=== PATIENT | male | born 1950 | race Caucasian/White ===

== ENCOUNTER 2023-10-09 09:14 | Outpatient (OUT) | payer MEDICARE, SELFPAY ==
[2023-10-09 10:22] LABS: Basophils Absolute Auto 0.1 10^3/uL (0.0-0.1); Basophils Percent Auto 0.7 % (0.2-2.0); Eosinophils Absolute Auto 0.3 10^3/uL (0.0-0.7); Eosinophils Percent Auto 4.1 % (0.9-7.0); Hematocrit 41.4 % (42.0-54.0); Hemoglobin 13.8 g/dL (14.0-18.0); Immature Granulocytes Abs Auto 0.05 10^3/uL (0.00-0.03); Immature Granulocytes Pct Auto 0.7 % (0.0-0.5); Lymphocytes Absolute Auto 1.8 10^3/uL (1.2-3.8); Lymphocytes Percent Auto 24.9 % (20.5-60.0); Mean Corpuscular HGB Conc 33.3 g/dL (29.9-35.2); Mean Corpuscular Volume 96.1 fL (80.0-94.0); Mean Platelet Volume 9.7 fL (9.5-13.5); Monocytes Absolute Auto 0.5 10^3/uL (0.3-0.8); Neutrophils Absolute Auto 4.6 10^3/uL (1.4-6.5); Neutrophils Percent Auto 62.6 % (43.0-75.0); Platelet Count 195 10^3/uL (150-450); Red Blood Count 4.31 10^6/uL (4.70-6.10); White Blood Count 7.4 10^3/uL (4.0-11.0)
[2023-10-09 10:46] LABS: Estimated Average Glucose 114 mg/dL; Glycohemoglobin A1C 5.6 % (4.5-6.2)
[2023-10-09 11:01] LABS: Alanine Aminotransferase 25 U/L (16-63); Albumin Level 3.5 g/dL (3.4-5.0); Alkaline Phosphatase 59 U/L (46-116); Anion Gap 10.9; Aspartate Amino Transferase 20 U/L (15-37); BUN Creatinine Ratio 13.6; Bilirubin Direct 0.1 mg/dL (0.0-0.2); Bilirubin Total 0.6 mg/dL (0.2-1.0); Calcium 9.2 mg/dL (8.5-10.1); Carbon Dioxide 27.8 mmol/L (21.0-32.0); Chloride 105 mmol/L (98-107); Chol HDL Ratio 4.5; Cholesterol 156 mg/dL (<=200); Estimated GFR (African America >60 (>=60); Estimated GFR (Non-African Ame >60 (>=60); Globulin 3.6 g/dL; Glucose 109 mg/dL (74-106); HDL Cholesterol 35 mg/dL (40-60); Potassium 4.7 mmol/L (3.5-5.1); Sodium 139 mmol/L (136-145); Total Protein 7.1 g/dL (6.4-8.2); Triglycerides 109 mg/dL (<=150); VLDL CHOLESTEROL 21.8 mg/dL
[2023-10-09 11:15] LABS: Prostate Specific Antigen Dx 3.42 ng/mL (<=4.00)
== END 2023-10-09 09:15 | disposition home or self-care (01) ==
LOC: LAB 09:17
PROVIDERS: PCP Family Medicine; Visit Provider Family Medicine
DX: E78.5 Hyperlipidemia, unspecified (principal); I10 Essential (primary) hypertension; E55.9 Vitamin D deficiency, unspecified; R73.03 Prediabetes; Z79.899 Other long term (current) drug therapy; Z12.5 Encounter for screening for malignant neoplasm of prostate
CPT/HCPCS: 36415; 80048; 80061; 80076; 82306; 83036; 84153; 85025

== ENCOUNTER 2024-05-28 21:37 | Emergency (ER) | payer MEDICARE, SELFPAY ==
--- OUTSIDE RECORDS SUMMARY | 2024-05-28 21:46 | XMS_ITS | CCD ---
Author Organization [facility] Care Team Providers Care Blind Lacer Name Role Phone DR NEHA WYLIE Attending Unavailable DR NEHA WYLIE Consulting Unavailable DR NEHA WYLIE Primary Care Unavailable DR NEHA WYLIE Admitting Unavailable Neha Wylie MD Primary Care Provider Neha Wylie MD Unavailable NEHA WYLIE Attending Unavailable NEHA WYLIE Attending Unavailable KARLA STACY Attending Unavailable NEHA WYLIE Referring Unavailable NEHA WYLIE Primary Care Unavailable KARLA STACY Attending Unavailable NEHA WYLIE Referring Unavailable NEHA WYLIE Primary Care Unavailable Medications Current Medications Medication Drug Class(es) Dates Sig (Normalized) Sig (Original) [id number] 200 actuat albuterol 0.09 mg/actuat metered dose inhaler (4 sources) beta2-Adrenergic Agonist Start: 03-23-2024 End: 03-23-2024 take 2 puff(s) by inhalation every four hours for wheezing albuterol HFA 90 mcg/act inhaler Indications: Chronic obstructive pulmonary disease, unspecified COPD type ([facility]/HCC) Inhale 2 puffs every 4 (four) hours if needed for wheezing or shortness of breath 18 g 5 03/23/2024 Active ALPRAZolam 1 mg oral tablet (3 sources) Benzodiazepine Start: 09-11-2023 take 1 tablet by mouth in the morning ALPRAZolam (Xanax) 1 MG tablet Take 1 mg by mouth in the morning and 1 mg in the evening. 09/11/2023 Active cholecalciferol 0.05 mg oral tablet (3 sources) Vitamin D Start: 10-21-2023 take 1 tablet by mouth once daily cholecalciferol (Vitamin D-3) 50 MCG (1999) tablet Indications: Vitamin D deficiency, unspecified TAKE 1 TABLET BY MOUTH DAILY 90 tablet 3 10/21/2023 Active lamoTRIgine 150 mg oral tablet (3 sources) Mood Stabilizer, Anti-epileptic Agent take 1 tablet by mouth once daily lamoTRIgine (LaMICtal) 150 MG tablet Take 1 tablet by mouth Daily Active lisinopril 10 mg oral tablet (3 sources) Angiotensin Converting Enzyme Inhibitor Start: 09-23-2023 take 1 tablet by mouth once daily lisinopril 10 MG tablet Indications: Essential (primary) hypertension (CMS/HCC) TAKE 1 TABLET BY MOUTH DAILY 90 tablet 3 09/23/2023 Active 7 actuat umeclidinium 0.0625 mg/actuat dry powder inhaler (3 sources) Anticholinergic Start: 02-07-2024 take 1 puff(s) by mouth once daily Umeclidinium Norco (Incruse Ellipta) 62.5 MCG/ACT aerosol powder Indications: Chronic obstructive pulmonary disease, unspecified (CMS/HCC) INHALE 1 PUFF BY MOUTH DAILY 30 each 5 02/07/2024 Active Problems Active Problems Problem Classification Problem Date Documented Da te Episodic/Chronic Anxiety disorders (4 sources) Generalized anxiety disorder; Translations: [Generalized anxiety disorder] Onset: 12-21-2016 10-07-2023 Chronic Chronic kidney disease (3 sources) Chronic kidney disease stage 3A ; Translations: [Stage 3a chronic kidney disease (HCC)] Onset: 10-07-2023 10-07-2023 Chronic Chronic obstructive pulmonary disease and bronchiectasis (5 sources) Chronic obstructive lung disease; Translations: [Chronic obstructive pulmonary disease, unspecified] Onset: 10-07-2023 10-07-2023 Chronic Disorders of lipid metabolism (3 sources) Dyslipidemia; Translations: [Hyperlipidemia, unspecified] Onset: 10-07-2023 10-07-2023 Chronic Essential hypertension (5 sources) Benign essential hypertension; Translations: [Essential (primary) hypertension] Onset: 10-07-2023 10-07-2023 Chronic Mood disorders (6 sources) Depressed bipolar I disorder in remission; Translations: [Bipolar disorder, in full remission, most recent episode depressed] Onset: 12-21-2016 10-07-2023 Chronic Nutritional deficiencies (3 sources) Vitamin D deficiency; Translations: [Vitamin D deficiency, unspecified] Onset: 10-07-2023 10-07-2023 Chronic Occlusion or stenosis of precerebral arteries (4 sources) Left carotid artery stenosis; Translations: [Occlusion and stenosis of left carotid artery] Onset: 03-23-2024 03-23-2024 Chronic Residual codes; unclassified (3 sources) Obstructive sleep apnea syndrome; Translations: [Obstructive sleep apnea (adult) (pediatric)] Onset: 10-07-2023 10-07-2023 Chronic Past or Other Problems Problem Classification Problem Date Documented Da te Episodic/Chronic Conditions associated with dizziness or vertigo (3 sources) Peripheral vertigo; Translations: [Benign paroxysmal vertigo, bilateral] Onset: 10-07-2023 10-07-2023 Episodic Diabetes mellitus without complication (3 sources) Prediabetes; Translations: [Prediabetes] Onset: 10-07-2023 10-07-2023 Episodic Other aftercare (3 sources) Long-term current use of drug therapy; Translations: [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 Aicha Keller Basophils/100 WBC (Bld) 0.9 % Normal 0.2-2.0 [facility] Comment on above: Performed By: #### C BC #### [facility] [address] [address] [address] Aicha Keller EO # 0.3 103/ul Normal 0.0-0.7 [facility] Comment on above: Performed By: #### C BC #### [facility] [address] [place] [address] Dr. Aicha Keller Eosinophils/100 WBC (Bld) 4.4 % Normal 0.9-7.0 [facility] Comment on above: Performed By: #### C BC #### [facility] [address] [place] [address] Dr. Aicha Keller Erythrocyte distribution width (RBC) [Ratio] 13.0 % Normal 11.0-15.0 [facility] Comment on above: Performed By: #### C BC #### [facility] [address] [place] [address] Dr. Aicha Keller Hematocrit (Bld) [Volume fraction] 41.9 % Critically low 42.0-54.0 [facility] Comment on above: Performed By: #### C BC #### [facility] [address] [place] [address] Dr. Aicha Keller Hemoglobin (Bld) [Mass/Vol] 14.0 g/dL Normal 14.0-18.0 [facility] Comment on above: Performed By: #### C BC #### [facility] [address] [place] [address] Dr. Aicha Keller IG # 0.04 10e3/ul Critically high 0.00-0.03 [facility] Comment on above: Performed By: #### C BC #### [facility] [address] [place] [address] Dr. Aicha Keller IG % 0.6 % Critically high 0.0-0.5 [facility] Comment on above: Performed By: #### C BC #### [facility] [address] [place] [address] Dr. Aicha Keller LYMPH # 1.6 103/ul Normal 1.2-3.8 [facility] Comment on above: Performed By: #### C BC #### [facility] [address] [place] [address] Dr. Aicha Keller Lymphocytes/100 WBC (Bld) 24.1 % Normal 20.5-60.0 [facility] Comment on above: Performed By: #### C BC #### [facility] [address] [place] [address] Dr. Aicha Keller MANUAL DIFF REQ NO Normal [facility] Comment on above: Performed By: #### C BC #### [facility] [address] [place] [address] Dr. Aicha Keller MCH (RBC) [Entitic mass] 31.3 pg Normal 25.9-34.0 [facility] Comment on above: Performed By: #### C BC #### [facility] [address] [place] [address] Dr. Aicha Keller MCHC (RBC) [Mass/Vol] 33.4 g/dL Normal 29.9-35.2 [facility] Comment on above: Performed By: #### C BC #### [facility] [address] [place] [address] Dr. Aicha Keller MCV (RBC) [Entitic vol] 93.7 fL Normal 80.0-94.0 [facility] Comment on above: Performed By: #### C BC #### [facility] [address] [place] [address] Dr. Aicha Keller MONO # 0.4 103/ul Normal 0.3-0.8 [facility] Comment on above: Performed By: #### C BC #### [facility] [address] [place] [address] Dr. Aicha Keller Monocytes/100 WBC (Bld) 6.3 % Normal 1.7-12.0 [facility] Comment on above: Performed By: #### C BC #### [facility] [address] [place] [address] Dr. Aicha Keller NEUT # 4.3 103/ul Normal 1.4-6.5 [facility] Comment on above: Performed By: #### C BC #### [facility] [address] [place] [address] Dr. Aicha Keller Neutrophils/100 WBC (Bld) 63.7 % Normal 43.0-75.0 [facility] Comment on above: Performed By: #### C BC #### [facility] [address] [place] [address] Dr. Aicha Keller Platelet mean volume (Bld) [Entitic vol] 9.2 fL Critically low 9.5-13.5 [facility] Comment on above: Performed By: #### C BC #### [facility] [address] [address] [address] Aicha Keller PLT 193 103/ul Normal 150-450 [facility] Comment on above: Performed By: #### C BC #### [facility] [address] [address] [address] Aicha Keller RBC 4.47 106/ul Critically low 4.70-6.10 [facility] Comment on above: Performed By: #### C BC #### [facility] [address] [address] [address] Aicha Keller WBC 6.8 103/ul Normal 4.0-11.0 [facility] Comment on above: Performed By: #### C BC #### [facility] [address] [place] [address] Dr. Aicha Keller GLYCOHEMOGLOBIN A1Con 2022 ADA RECOMMENDATION SEE BELOW Normal [facility] Comment on above: Result Comment: ADA RECOMMENDED LIMIT 4.0 - 6.0 ADA THERAPEUTIC TARGET < 7.0 ACTION SUGGESTED > 7.0 Performed By: #### A 1C #### [facility] [address] [address] [address] Aicha Keller Glucose [Mass/Vol] 111 mg/dL Normal [facility] Comment on above: Performed By: #### A 1C #### [facility] [address] [place] [address] Dr. Aicha Keller HbA1c (Bld) [Mass fraction] 5.5 % Normal 4.5-6.2 [facility] Comment on above: Performed By: #### A 1C #### [facility] [address] [place] [address] Dr. Aicha Keller LIPID PROFILEon 10-17-2022 CHOL-HDL RATIO NORM SEE BELOW Normal [facility] Comment on above: Result Comment: 3.3 - 4.4 LOW RISK 4.4 - 7.1 AVERAGE RISK 7.1 - 11.0 MODERATE RISK >11.0 HIGH RISK Performed By: #### L IPID, LIVER, BMP #### [facility] [address] [place] [address] Dr. Aicha Keller Cholesterol [Mass/Vol] 153 mg/dL Normal <=200 [facility] Comment on above: Performed By: #### L IPID, LIVER, BMP #### [facility] [address] [address] [address] Aicha Keller Cholesterol in HDL [Mass/Vol] 35 mg/dL Critically low 40-60 [facility] Comment on above: Performed By: #### L IPID, LIVER, BMP #### [facility] [address] [address] [address] Aicha Keller Cholesterol in LDL [Mass/Vol] 93.4 mg/dL Normal [facility] Comment on above: Performed By: #### L IPID, LIVER, BMP #### [facility] [address] [address] [address] Aicha Keller Cholesterol.total/Cho lesterol in HDL [Mass ratio] 4.4 {ratio} Normal [facility] Comment on above: Performed By: #### L IPID, LIVER, BMP #### [facility] [address] [address] [address] Aicha Keller HDL NORMAL > or = 60 mg/dl - LOW CARDIOVASCULAR RISK <40 mg/dl - HIGH CARDIOVASCULAR RISK Normal [facility] Comment on above: Performed By: #### L IPID, LIVER, BMP #### [facility] [address] [address] [address] Aicha Keller LDL CALC NORMAL SEE BELOW Normal [facility] Comment on above: Result Comment: <100 mg/dl OPTIMAL 100 - 129 mg/dl NEAR OR ABOVE OPTIMAL 130 - 159 mg/dl BORDERLINE HIGH 160 - 189 mg/dl HIGH >190 mg/dl VERY HIGH Performed By: #### L IPID, LIVER, BMP #### [facility] [address] [address] [address] Aicha Keller Triglyceride [Mass/Vol] 123 mg/dL Normal <=150 [facility] Comment on above: Performed By: #### L IPID, LIVER, BMP #### [facility] [address] [address] [address] Aicha Keller VLDL CALC 24.6 mg/dL Normal [facility] Comment on above: Performed By: #### L IPID, LIVER, BMP #### [facility] [address] [address] [address] Aicha Keller LIVER PROFILEon 10-17-2022 Albumin [Mass/Vol] 3.4 g/dL Normal 3.4-5.0 [facility] Comment on above: Performed By: #### L IPID, LIVER, BMP #### [facility] [address] [address] [address] Aicha Keller Albumin/Globulin [Mass ratio] 0.8 {ratio} Normal [facility] Comment on above: Performed By: #### L IPID, LIVER, BMP #### [facility] [address] [address] [address] Aicha Keller ALP [Catalytic activity/Vol] 65 U/L Normal 46-116 [facility] Comment on above: Performed By: #### L IPID, LIVER, BMP #### [facility] [address] [address] [address] Aicha Keller ALT [Catalytic activity/Vol] 25 U/L Normal 16-63 [facility] Comment on above: Performed By: #### L IPID, LIVER, BMP #### [facility] [address] [place] [address] Dr. Aicha Keller AST [Catalytic activity/Vol] 17 U/L Normal 15-37 [facility] Comment on above: Performed By: #### L IPID, LIVER, BMP #### [facility] [address] [address] [address] Aicha Keller BILI, CONJUGATED 0.1 mg/dL Normal 0.0-0.2 [facility] Comment on above: Performed By: #### L IPID, LIVER, BMP #### [facility] [address] [place] [address] Dr. Aicha Keller Bilirubin [Mass/Vol] 0.2 mg/dL Normal 0.2-1.0 [facility] Comment on above: Performed By: #### L IPID, LIVER, BMP #### [facility] [address] [address] [address] Aicha Keller Globulin (S) [Mass/Vol] 4.1 g/dL Normal [facility] Comment on above: Performed By: #### L IPID, LIVER, BMP #### [facility] [address] [place] [address] Dr. Aicha Keller Protein [Mass/Vol] 7.5 g/dL Normal 6.4-8.2 [facility] Comment on above: Performed By: #### L IPID, LIVER, BMP #### [facility] [address] [place] [address] Dr. Aicha Keller PROF CHEM 8 (BAS METB)on Anion gap [Moles/Vol] 12.0 mmol/L Normal [facility] Comment on above: Performed By: #### L IPID, LIVER, BMP #### [facility] [address] [place] [address] Dr. Aicha Keller Calcium [Mass/Vol] 8.9 mg/dL Normal 8.5-10.1 [facility] Comment on above: Performed By: #### L IPID, LIVER, BMP #### [facility] [address] [address] [address] Aicha Keller Chloride [Moles/Vol] 103 mmol/L Normal 98-107 [facility] Comment on above: Performed By: #### L IPID, LIVER, BMP #### [facility] [address] [place] [address] Dr. Aicha Keller CO2 [Moles/Vol] 28.5 mmol/L Normal 21.0-32.0 [facility] Comment on above: Performed By: #### L IPID, LIVER, BMP #### [facility] [address] [address] [address] Aicha Keller Creatinine [Mass/Vol] 1.13 mg/dL Normal 0.70-1.30 [facility] Comment on above: Performed By: #### L IPID, LIVER, BMP #### [facility] [address] [address] [address] Aicha Keller EGFR-AF GUAMANIAN >60 Normal >=60 [facility] Comment on above: Performed By: #### L IPID, LIVER, BMP #### [facility] [address] [address] [address] Aicha Keller EGFR-NON AF GUAMANIAN >60 Normal >=60 [facility] Comment on above: Performed By: #### L IPID, LIVER, BMP #### [facility] [address] [address] [address] Aicha Keller Glucose [Mass/Vol] 124 mg/dL Critically high 74-106 [facility] Comment on above: Performed By: #### L IPID, LIVER, BMP #### [facility] [address] [address] [address] Aicha Keller Potassium [Moles/Vol] 4.5 mmol/L Normal 3.5-5.1 [facility] Comment on above: Performed By: #### L IPID, LIVER, BMP #### [facility] [address] [address] [address] Aicha Keller Sodium [Moles/Vol] 139 mmol/L Normal 136-145 [facility] Comment on above: Performed By: #### L IPID, LIVER, BMP #### [facility] [address] [place] [address] Dr. Aicha Keller Urea nitrogen [Mass/Vol] 9.0 mg/dL Normal 7.0-18.0 [facility] Comment on above: Performed By: #### L IPID, LIVER, BMP #### [facility] [address] [address] [address] Aicha Keller Urea nitrogen/Creatinine [Mass ratio] 8.0 mg/mg Normal [facility] Comment on above: Performed By: #### L IPID, LIVER, BMP #### [facility] [address] [place] [address] Dr. Aicha Keller VITAMIN D 25 OHon 10-17-2022 VIT D 25-OH 26.6 ng/mL Normal [facility] Comment on above: Performed By: #### V ITNAA, PSASC #### [facility] [address] [place] [address] Dr. Aicha Keller VIT D RANGES SEE BELOW Normal [facility] Comment on above: Result Comment: <20 ng/mL Vit D deficient 20 - <30 ng/mL Vit D insufficient 30 - 100 ng/mL Vit D sufficient >100 ng/mL Potential Toxicity Performed By: #### V ITAD, PSASC #### [facility] [address] [address] [address] Aicha Keller Vital Signs Date Time Vital Sign Value Performing Clinician Faci lity 03-23-2024 13:24-0500 Body height 172.7 cm Neha Wylie MD Work Phone: [facility] 03-23-2024 13:24-0500 Body mass index (BMI) [Ratio] 31.02 kg/m2 Neha Wylie MD Work Phone: [facility] 03-23-2024 13:24-0500 Body temperature 97.81 [degF] Neha Wylie MD Work Phone: [facility] 03-23-2024 13:24-0500 Body weight 92.53 kg Neha Wylie MD Work Phone: [facility] 03-23-2024 13:24-0500 Diastolic blood pressure 58 mm[Hg] Neha Wylie MD Work Phone: [facility] 03-23-2024 13:24-0500 Heart rate 87 /min Neha Wylie MD Work Phone: [facility] 03-23-2024 13:24-0500 Respiratory rate 20 /min Neha Wylie MD Work Phone: [facility] 03-23-2024 13:24-0500 SaO2% (BldA) [Mass fraction] 96 % Neha Wylie MD Work Phone: [facility] 03-23-2024 13:24-0500 Systolic blood pressure 110 mm[Hg] Neha Wylie MD Work Phone: [facility] Healthcare Encounters Encounter Date Encounter Type Care Provider Facility Start: 03-31-2024 End: 03-31-2024 ambulatory [facility] Start: 03-23-2024 End: 03-23-2024 Bamboo flowsheet Neha Wylie MD Work Phone: [facility] Start: 03-23-2024 End: 03-23-2024 Bamboo flowsheet Neha Wylie MD Work Phone: [facility] Start: 03-23-2024 End: 03-23-2024 Office outpatient visit 25 minutes Neha Wylie MD Work Phone: [facility] Comment on above: Essential hypertensi on, benign (CMS/HCC) (Primary Dx); Chronic obstructive pulmonary disease, unspecified COPD type (CMS/HCC); Depressed bipolar I disorder in remission (CMS/HCC); Left carotid artery stenosis Start: 03-23-2024 End: 03-23-2024 ambulatory NEHA WYLIE Not Available Start: 10-07-2023 End: 10-07-2023 ambulatory NEHA WYLIE Not Available Start: 09-26-2023 End: 09-26-2023 ambulatory [facility] Start: 10-17-[address] NEHA WYLIE Facil ity:H1 Procedures Date Procedure Procedure Detail Performing Clinician Start: 10-17-[address] NEHA LIVE Comment on above: Performed By: #### V ITAD, PSASC #### [facility] [address] [place] [address] Dr. Aicha Keller Start: 09-11-2017 Colonoscopy Neha valencia MD Work Phone: Plan of Treatment Date Care Activity Detail Author Start: 09-12-2027 Screening for malign ant neoplasm of colon [facility] Start: 09-23-2024 End: 09-23-2024 Patient encounter procedure 09/23/2024 1:00 PM EDT Office Visit [facility] [address] [place] [phone] Neha Wylie MD [address] [place] [phone] [facility] Start: 03-23-2024 End: 03-23-2024 Patient encounter procedure 03/23/2024 1:15 PM EST Office Visit [facility] [address] [place] [phone] Neha Wylie MD [address] [place] [phone] Arrived [facility] Comment on above: Arrived Start: 01-19-2024 Influenza vaccination Influenza Vacc ine (#1) [facility] Start: 1956 Pneumococcal Vaccine : 65+ Years (1 of 2 - PCV) Pneumococcal Vaccine: 65+ Years (1 of 2 - PCV) [facility] Start: 1950 Medicare Annual Well ness (AWV) Medicare Annual Wellness (AWV) [facility] Start: 1950 Screening for malign ant neoplasm of colon [facility] Immunizations Immunization Date Immunization Notes Care Provider Fa cility 03-13-2024 influenza virus vacc ine, unspecified formulation Neha Wylie MD Work Phone: [facility] Payers Date Payer Category Payer Medicare (Managed Care) [facility] [id number] 2021 Medicare [id number] 1960 Medicare [id number] 1959 Unknown [id number] 1949 Unknown [id number] 1949 Unknown [id number] 1949 Unknown [id number] 1949 Unknown [id number] 1949 Unknown [id number] Social History Date Type Detail Facility Start: [facility]07[facility] History of tobacco use Cigarette Smoker [facility] Start: 10-07-2023 Tobacco use and exposure Smokeless t obacco non-user [facility] Start: 10-07-2023 End: 03-23-2024 History of Social function [facility] Start: 10-07-2023 End: 03-23-2024 Tobacco use panel [facility] Start: 1950 Sex assigned at Not on file [facility] History of Present illness Narrative 03-23-2024 Neha Wylie MD - 03/23/2024 2:01 PM Cornelio Wylie MD - 03/23/2024 2:00 PM Cornelio Wylie MD - 03/23/2024 2:00 PM Cornelio Wylie MD - 03/23/2024 2:00 PM EST Note Date & Type Note Facility 03-23-2024 History of Presen t illness Narrative Associated Problem(s): Left carotid artery stenosis Found blockage but no symptoms. Check US next visit. Associated Problem(s): Essential hypertension, benign (CMS/HCC) BP controlled and monitor PRN. Associated Problem(s): Depressed bipolar I disorder in remission (CMS/HCC) Symptoms controlled with medication and continue. Follow up with psychiatry. Associated Problem(s): COPD (chronic obstructive pulmonary disease) (CMS/HCC) Breathing stable and continue incruse. Use albuterol PRN. Images from the original note were not included. Subjective Patient ID: Brian Swartz is a 74 y.o. male who presents for Follow-up (6 m). Follow up HTN, COPD, and bipolar. Patient doing well today. Checking BP PRN and typically controlled. BP normal today. Taking medication daily and tolerating without side effects. COPD stable. Taking incruse daily which helps. Mild SOB with exertion. Occasional cough and sputum. Using albuterol once every few weeks and helps. Mood controlled with medication and following with psychiatry. Reports prior imaging showed plaque in left carotid and needs to monitor. Not lightheaded or dizzy. Review of Systems Constitutional: Negative for fatigue. Respiratory: Negative for cough, shortness of breath and wheezing. Cardiovascular: Negative for chest pain and palpitations. Gastrointestinal: Negative for abdominal pain, diarrhea, nausea and vomiting. Genitourinary: Negative for dysuria. Objective Physical Exam Constitutional: General: He is not in acute distress. Appearance: Normal appearance. HENT: Head: Normocephalic. Right Ear: Tympanic membrane and ear canal normal. Left Ear: Tympanic membrane and ear canal normal. Eyes: Extraocular Movements: Extraocular movements intact. Pupils: Pupils are equal, round, and reactive to light. Cardiovascular: Rate and Rhythm: Normal rate and regular rhythm. Heart sounds: No murmur heard. No friction rub. No gallop. Pulmonary: Breath sounds: Normal breath sounds. No wheezing, rhonchi or rales. Abdominal: General: Bowel sounds are normal. There is no distension. Palpations: Abdomen is soft. Tenderness: There is no abdominal tenderness. There is no guarding or rebound. Musculoskeletal: Left lower leg: No edema. Neurological: Mental Status: He is alert. Assessment/Plan Problem List Items Addressed This Visit Essential hypertension, benign (CMS/HCC) - Primary BP controlled and monitor PRN. Depressed bipolar I disorder in remission (CMS/HCC) Symptoms controlled with medication and continue. Follow up with psychiatry. COPD (chronic obstructive pulmonary disease) (CMS/HCC) Breathing stable and continue incruse. Use albuterol PRN. Relevant Medications albuterol HFA 90 mcg/act inhaler Left carotid artery stenosis Found blockage but no symptoms. Check US next visit. documented in this encounter [facility] Evaluation note Note Date & Type Note Facility Evaluation note Diagnosis Essential hypertension, benign (CMS/HCC)- Primary Essential hypertension, benign Chronic obstructive pulmonary disease, unspecified COPD type (CMS/HCC) Depressed bipolar I disorder in remission (CMS/HCC) Bipolar I disorder, most recent episode (or current) depressed, in full remission Dyslipidemia (CMS/HCC) Other and unspecified hyperlipidemia Prediabetes Other abnormal glucose Stage 3a chronic kidney disease (HCC) (CMS/HCC) Vitamin D deficiency Encounter for long-term (current) use of medications Encounter for long-term (current) use of other medications Screening PSA (prostate specific antigen) Special screening for malignant neoplasm of prostate Essential hypertension, benign (CMS/HCC)- Primary Essential hypertension, benign Chronic obstructive pulmonary disease, unspecified COPD type (CMS/HCC) Depressed bipolar I disorder in remission (CMS/HCC) Bipolar I disorder, most recent episode (or current) depressed, in full remission Left carotid artery stenosis documented in this encounter [facility] Summary Purpose Family History No Family History Records FoundNo Family History Records FoundNo Family History Records Found Advance Directives No Advanced Directives Records FoundNo Advanced Directives Records FoundNo Advanced Directives Records Found Additional Source Comments (unrecognized sect ion and content) No Status Records FoundNo Status Records FoundNo Status Records Found INFORMATION SOURCE (unrecogn ized section and content) DATE CREATED AUTHOR 10/26/2022 [facility] DATE CREATED AUTHOR AUTHOR'S ORGANIZ ATION 03/24/2024 [facility] EPIC DATE CREATED AUTHOR AUTHOR'S ORGANIZ ATION 04/02/2024 [facility] Care Teams (unrecognized sec tion and content) Blind Lacer Relationship Specialty Start Date End Date Neha Wylie MD [address] [place] [id number] PCP - General Family Medicine 10/07/23 Neha Wylie MD [address] [place] [phone] [facility] 12/19/23 01/17/69 Blind Lacer Relationship Specialty Start Date End Date Neha Wylie MD [address] [place] [phone] PCP - General Family Medicine 10/07/23 Neha Wylie MD [address] [place] [address] [facility] 12/19/23 01/17/69 Reason for Visit (unrecogniz ed section and content) Reason Comments Follow-up 6 m FOR RECORDS PERTAINING TO PATIENTS WHO ARE OR HAVE BEEN ENROLLED IN A CHEMICAL DEPENDENCY/SUBSTANCEABUSE PROGRAM, SOME INFORMATION MAY BE OMITTED. This clinical summary was aggregated from multiple sources. Caution should be exercised in using it in the provision of clinical care. This summary normalizes information from multiple sources, and as a consequence, information in this document may materially change the coding, format and clinical context of patient data. In addition, data may be omitted in some cases. CLINICAL DECISIONS SHOULD BE BASED ON THE PRIMARY CLINICAL RECORDS. [facility] provides no warranty or guarantee of the accuracy or completeness of information in this document.
== END 2024-05-28 21:45 | disposition left against medical advice (07) ==
LOC: ER 21:44
PROVIDERS: Emergency Provider Emergency Medicine; PCP Family Medicine
DX: Z53.21 Procedure and treatment not carried out due to patient leaving prior to being seen by health care provider (principal)

== ENCOUNTER 2024-10-15 14:02 | Outpatient (OUT) | payer MEDICARE, SELFPAY ==
--- OUTSIDE RECORDS SUMMARY | 2024-10-15 14:26 | XMS_ITS | CCD ---
Author Organization [facility] Team Providers Care Discharge Door Operator Name Role Phone DR LOBO WYLIE Attending Unavailable INESSA, DR LOBO West Consulting Unavailable INESSA, DR LOBO West Primary Care Unavailable INESSA, DR LOBO West Admitting Unavailable Lobo Wylie MD Primary Care Provider Lobo Wylie MD Unavailable Lobo Wylie MD Primary Care Provider [phone] LOBO WYLIE Attending Unavailable LOBO WYLIE Attending Unavailable LOBO WYLIE Attending Unavailable KARLA STACY Attending Unavailable LOBO WYLIE Referring Unavailable LOBO WYLIE Primary Care Unavailable KARLA STACY Attending Unavailable LOBO WYLIE Referring Unavailable LOBO WYLIE Primary Care Unavailable Medications Current Medications Medication Drug Class(es) Dates Sig (Normalized) Sig (Original) [id number] 200 actuat albuterol 0.09 mg/actuat metered dose inhaler (8 sources) beta2-Adrenergic Agonist Start: 03-23-2024 End: 03-23-2024 take 2 puff(s) by inhalation every four hours for wheezing albuterol HFA 90 mcg/act inhaler Indications: Chronic obstructive pulmonary disease, unspecified COPD type ([facility]) Inhale 2 puffs every 4 (four) hours if needed for wheezing or shortness of breath 18 g 5 03/23/2024 Active Start: 07-12-2020 take 2 puff(s) by in halation every four hours as needed albuterol (PROVENTIL HFA;VENTOLIN HFA) 90 mcg/actuation inhaler Inhale 2 puffs every 4 (four) hours as needed. 07/12/2020 Active ALPRAZolam 1 mg oral tablet (8 sources) Benzodiazepine Start: 09-11-2023 End: 12-09-2023 take 1 tablet by mouth in the morning ALPRAZolam (Xanax) 1 MG tablet Take 1 mg by mouth in the morning and 1 mg in the evening. 09/11/2023 Active cholecalciferol 0.05 mg oral tablet (7 sources) Vitamin D Start: 09-21-2023 take 1 tablet by mouth once daily cholecalciferol (Vitamin D-3) 50 MCG (2000 UT) tablet Indications: Vitamin D deficiency, unspecified TAKE 1 TABLET BY MOUTH DAILY 90 tablet 3 10/21/2023 Active lamoTRIgine 150 mg oral tablet (7 sources) Mood Stabilizer, Anti-epileptic Agent Start: 02-12-2023 take 1 tablet by mouth once daily lamoTRIgine (LaMICtal) 150 mg tablet Indications: Major depressive disorder, recurrent episode, moderate (CMS-HCC) Take 1 tablet (150 mg total) by mouth once daily. 90 tablet 3 02/12/2023 Active lisinopril 10 mg oral tablet (7 sources) Angiotensin Converting Enzyme Inhibitor Start: 09-15-2024 take 1 tablet by mouth once daily lisinopril 10 MG tablet Indications: Essential (primary) hypertension (CMS/HCC) TAKE 1 TABLET BY MOUTH DAILY 90 tablet 3 09/15/2024 Active Start: 02-27-2022 take 1 tablet by martha th once daily lisinopril 10 MG tablet Indications: Essential (primary) hypertension (CMS/HCC) TAKE 1 TABLET BY MOUTH DAILY 90 tablet 3 09/23/2023 Active Nirmatrelvir&Ritonavir 300/1 00 (Paxlovid, 300/100,) 20 x 150 MG & 10 x 100MG tablet therapy pack (3 sources) Start: 05-29-2024 End: 09-23-2024 Nirmatrelvir&Ritonavir 300/1 00 (Paxlovid, 300/100,) 20 x 150 MG & 10 x 100MG tablet therapy pack Indications: COVID-19 Take 1 each by mouth See administration instructions 1 each 05/29/2024 09/23/2024 Discontinued Start: 05-29-2024 Nirmatrelvir&R itonavir 300/100 (Paxlovid, 300/100,) 20 x 150 MG & 10 x 100MG tablet therapy pack Indications: COVID-19 Take 1 each by mouth See administration instructions 1 each 05/29/2024 Active 7 actuat umeclidinium 0.0625 mg/actuat dry powder inhaler (7 sources) Anticholinergic Start: 08-18-2024 take 1 puff(s) by mouth once daily Umeclidinium [place] (Incruse Ellipta) 62.5 MCG/ACT aerosol powder Indications: Chronic obstructive pulmonary disease, unspecified INHALE 1 PUFF BY MOUTH DAILY 30 each 5 08/18/2024 Active Start: 02-07-2024 take 1 puff(s) by mo uth once daily Umeclidinium [place] (Incruse Ellipta) 62.5 MCG/ACT aerosol powder Indications: Chronic obstructive pulmonary disease, unspecified (CMS/HCC) INHALE 1 PUFF BY MOUTH DAILY 30 each 5 02/07/2024 Active Start: 06-12-2020 take 1 puff(s) by in halation once daily INCRUSE ELLIPTA 62.5 mcg/actuation blister with device INHALE 1 PUFF DAILY 06/12/2020 Active Problems Active Problems Problem Classification Problem Date Documented Da te Episodic/Chronic Anxiety disorders (9 sources) Generalized anxiety disorder; Translations: [Generalized anxiety disorder] Onset: 12-21-2016 10-07-2023 Chronic Chronic kidney disease (8 sources) Chronic kidney disease stage 3A ; Translations: [Stage 3a chronic kidney disease (HCC)] Onset: 10-07-2023 10-07-2023 Chronic Chronic obstructive pulmonary disease and bronchiectasis (11 sources) Chronic obstructive lung disease; Translations: [Chronic obstructive pulmonary disease, unspecified] Onset: 09-20-2020 10-07-2023 Chronic Diabetes mellitus without complication (8 sources) Prediabetes; Translations: [Prediabetes] Onset: 10-07-2023 10-07-2023 Episodic Disorders of lipid metabolism (8 sources) Dyslipidemia; Translations: [Hyperlipidemia, unspecified] Onset: 10-07-2023 10-07-2023 Chronic Essential hypertension (10 sources) Benign essential hypertension; Translations: [Essential (primary) hypertension] Onset: 10-07-2023 10-07-2023 Chronic Mood disorders (12 sources) Depressed bipolar I disorder in remission; Translations: [Bipolar disorder, in full remission, most recent episode depressed] Onset: 12-21-2016 10-07-2023 Chronic Nutritional deficiencies (6 sources) Vitamin D deficiency; Translations: [Vitamin D deficiency, unspecified] Onset: 10-07-2023 10-07-2023 Chronic Occlusion or stenosis of precerebral arteries (7 sources) Left carotid artery stenosis; Translations: [Occlusion and stenosis of left carotid artery] Onset: 03-23-2024 03-23-2024 Chronic Other aftercare (8 sources) Long-term current use of drug therapy; Translations: [Other usp (current) drug therapy] Onset: 10-07-2023 10-07-2023 Episodic Other nutritional; endocrine; and metabolic disorders (4 sources) Obesity caused by energy imbalance; Translations: [Class 1 obesity due to excess calories with serious comorbidity and body mass index (BMI) of 30.0 to 30.9 in adult] Onset: 09-23-2024 09-23-2024 Chronic Other screening for suspected conditions (not mental disorders or infectious disease) (8 sources) Patient encounter status; Translations: [Encounter for screening for malignant neoplasm of prostate] Onset: 10-07-2023 10-07-2023 Episodic Residual codes; unclassified (6 sources) Obstructive sleep apnea syndrome; Translations: [Obstructive sleep apnea (adult) (pediatric)] Onset: 10-07-2023 10-07-2023 Chronic Past or Other Problems Problem Classification Problem Date Documented Da te Episodic/Chronic Conditions associated with dizziness or vertigo (6 sources) Peripheral vertigo; Translations: [Benign paroxysmal vertigo, bilateral] Onset: 10-07-2023 10-07-2023 Episodic Mood disorders (2 sources) Mood disorders Onset: 09-23-2024 09-23-2024 Results Test Name Value Interpretation Reference Range Facil ity CBC AUTO DIFFon 10-17-2022 BASO # 0.1 103/ul Normal 0.0-0.1 [facility] Comment on above: Performed By: #### C BC #### [facility] [address] [address] [address] Aicha Keller Basophils/100 WBC (Bld) 0.9 % Normal 0.2-2.0 [facility] Comment on above: Performed By: #### C BC #### [facility] [address] [address] [address] Aicha Keller EO # 0.3 103/ul Normal 0.0-0.7 [facility] Comment on above: Performed By: #### C BC #### [facility] [address] [place] [address] Dr. Aicha Keller Eosinophils/100 WBC (Bld) 4.4 % Normal 0.9-7.0 [facility] Comment on above: Performed By: #### C BC #### [facility] [address] [place] [address] Dr. Aihca Keller Erythrocyte distribution width (RBC) [Ratio] 13.0 % Normal 11.0-15.0 [facility] Comment on above: Performed By: #### C BC #### [facility] [address] [place] [address] Dr. Aicha Keller Hematocrit (Bld) [Volume fraction] 41.9 % Critically low 42.0-54.0 [facility] Comment on above: Performed By: #### C BC #### [facility] [address] [place] [address] Dr. Aicha Keller Hemoglobin (Bld) [Mass/Vol] 14.0 g/dL Normal 14.0-18.0 [facility] Comment on above: Performed By: #### C BC #### [facility] [address] [place] [address] Dr. Aicha Keller IG # 0.04 10e3/ul Critically high 0.00-0.03 [facility] Comment on above: Performed By: #### C BC #### [facility] [address] [place] [address] Dr. Aicha Keller IG % 0.6 % Critically high 0.0-0.5 [facility] Comment on above: Performed By: #### C BC #### [facility] [address] [place] [address] Dr. Aicha Keller LYMPH # 1.6 103/ul Normal 1.2-3.8 [facility] Comment on above: Performed By: #### C BC #### [facility] [address] [place] [address] Dr. Aicha Keller Lymphocytes/100 WBC (Bld) 24.1 % Normal 20.5-60.0 [facility] Comment on above: Performed By: #### C BC #### [facility] [address] [place] [address] Dr. Aicha Keller MANUAL DIFF REQ NO Normal [facility] Comment on above: Performed By: #### C BC #### [facility] [address] [place] [address] Dr. Aicha Keller MCH (RBC) [Entitic mass] 31.3 pg Normal 25.9-34.0 [facility] Comment on above: Performed By: #### C BC #### [facility] [address] [place] [address] Dr. Aicha Keller MCHC (RBC) [Mass/Vol] 33.4 g/dL Normal 29.9-35.2 [facility] Comment on above: Performed By: #### C BC #### [facility] [address] [place] [address] Dr. Aicha Keller MCV (RBC) [Entitic vol] 93.7 fL Normal 80.0-94.0 [facility] Comment on above: Performed By: #### C BC #### [facility] [address] [place] [address] Dr. Aicha Keller MONO # 0.4 103/ul Normal 0.3-0.8 [facility] Comment on above: Performed By: #### C BC #### [facility] [address] [place] [address] Dr. Aicha Keller Monocytes/100 WBC (Bld) 6.3 % Normal 1.7-12.0 [facility] Comment on above: Performed By: #### C BC #### [facility] [address] [place] [address] Dr. Aicha Keller NEUT # 4.3 103/ul Normal 1.4-6.5 [facility] Comment on above: Performed By: #### C BC #### [facility] [address] [place] [address] Dr. Aicha Keller Neutrophils/100 WBC (Bld) 63.7 % Normal 43.0-75.0 [facility] Comment on above: Performed By: #### C BC #### [facility] [address] [place] [address] Dr. Aicha Keller Platelet mean volume (Bld) [Entitic vol] 9.2 fL Critically low 9.5-13.5 [facility] Comment on above: Performed By: #### C BC #### [facility] [address] [address] [address] Aicha Keller PLT 193 103/ul Normal 150-450 [facility] Comment on above: Performed By: #### C BC #### [facility] [address] [place] [address] Dr. Aicha Keller RBC 4.47 106/ul Critically low 4.70-6.10 [facility] Comment on above: Performed By: #### C BC #### [facility] [address] [place] [address] Dr. Aicha Keller WBC 6.8 103/ul Normal 4.0-11.0 [facility] Comment on above: Performed By: #### C BC #### [facility] [address] [place] [address] Dr. Aicha Keller GLYCOHEMOGLOBIN A1Con 2022 ADA RECOMMENDATION SEE BELOW Normal [facility] Comment on above: Result Comment: ADA RECOMMENDED LIMIT 4.0 - 6.0 ADA THERAPEUTIC TARGET < 7.0 ACTION SUGGESTED > 7.0 Performed By: #### A 1C #### [facility] [address] [place] [address] Dr. Aicha Keller Glucose [Mass/Vol] 111 mg/dL Normal [facility] Comment on above: Performed By: #### A 1C #### [facility] [address] [place] [address] Dr. Aicha Keller HbA1c (Bld) [Mass fraction] 5.5 % Normal 4.5-6.2 [facility] Comment on above: Performed By: #### A 1C #### [facility] [address] [place] [address] Dr. Aicha Keller LIPID PROFILEon 10-17-2022 CHOL-HDL RATIO NORM SEE BELOW Normal [facility] Comment on above: Result Comment: 3.3 - 4.4 LOW RISK 4.4 - 7.1 AVERAGE RISK 7.1 - 11.0 MODERATE RISK >11.0 HIGH RISK Performed By: #### L IPID, LIVER, BMP #### [facility] [address] [address] [address] Aicha Keller Cholesterol [Mass/Vol] 153 mg/dL Normal <=200 [facility] Comment on above: Performed By: #### L IPID, LIVER, BMP #### [facility] [address] [address] [address] Aicha Keller Cholesterol in HDL [Mass/Vol] 35 mg/dL Critically low 40-60 [facility] Comment on above: Performed By: #### L IPID, LIVER, BMP #### [facility] [address] [address] [address] Aicha Keller Cholesterol in LDL [Mass/Vol] 93.4 mg/dL Normal [facility] Comment on above: Performed By: #### L IPID, LIVER, BMP #### [facility] [address] [address] [address] Aicha Keller Cholesterol.total/Cho lesterol in HDL [Mass ratio] 4.4 {ratio} Normal [facility] Comment on above: Performed By: #### L IPID, LIVER, BMP #### [facility] [address] [address] [address] Aicha Keller HDL NORMAL > or = 60 mg/dl - LOW CARDIOVASCULAR RISK <40 mg/dl - HIGH CARDIOVASCULAR RISK Normal [facility] Comment on above: Performed By: #### L IPID, LIVER, BMP #### [facility] [address] [address] [address] Aicha Keller LDL CALC NORMAL SEE BELOW Normal [facility] Comment on above: Result Comment: <100 mg/dl OPTIMAL 100 - 129 mg/dl NEAR OR ABOVE OPTIMAL 130 - 159 mg/dl BORDERLINE HIGH 160 - 189 mg/dl HIGH >190 mg/dl VERY HIGH Performed By: #### L IPID, LIVER, BMP #### [facility] [address] [address] [address] Aicha Keller Triglyceride [Mass/Vol] 123 mg/dL Normal <=150 [facility] Comment on above: Performed By: #### L IPID, LIVER, BMP #### [facility] [address] [address] [address] Aicha Keller VLDL CALC 24.6 mg/dL Normal [facility] Comment on above: Performed By: #### L IPID, LIVER, BMP #### [facility] [address] [address] [address] Aicha Keller LIVER PROFILEon 10-17-2022 Albumin [Mass/Vol] 3.4 g/dL Normal 3.4-5.[address] [facility] Comment on above: Performed By: #### L IPID, LIVER, BMP #### [facility] [address] [place] [address] Dr. Aicha Keller Albumin/Globulin [Mass ratio] 0.8 {ratio} Normal [facility] Comment on above: Performed By: #### L IPID, LIVER, BMP #### [facility] [address] [address] [address] Aicha Keller ALP [Catalytic activity/Vol] 65 U/L Normal 46-116 [facility] Comment on above: Performed By: #### L IPID, LIVER, BMP #### [facility] [address] [address] [address] Aicha Keller ALT [Catalytic activity/Vol] 25 U/L Normal 16-63 [facility] Comment on above: Performed By: #### L IPID, LIVER, BMP #### [facility] [address] [address] [address] Aicha Keller AST [Catalytic activity/Vol] 17 U/L Normal 15-37 [facility] Comment on above: Performed By: #### L IPID, LIVER, BMP #### [facility] [address] [address] [address] Aicha Keller BILI, CONJUGATED 0.1 mg/dL Normal 0.0-0.2 [facility] Comment on above: Performed By: #### L IPID, LIVER, BMP #### [facility] [address] [place] [address] Dr. Aicha Keller Bilirubin [Mass/Vol] 0.2 mg/dL Normal 0.2-1.0 [facility] Comment on above: Performed By: #### L IPID, LIVER, BMP #### [facility] [address] [place] [address] Dr. Aicha Keller Globulin (S) [Mass/Vol] 4.1 g/dL Normal [facility] Comment on above: Performed By: #### L IPID, LIVER, BMP #### [facility] [address] [place] [address] Dr. Aicha Keller Protein [Mass/Vol] 7.5 g/dL Normal 6.4-8.2 [facility] Comment on above: Performed By: #### L IPID, LIVER, BMP #### [facility] [address] [place] [address] Dr. Aicha Keller PROF CHEM 8 (BAS METB)on Anion gap [Moles/Vol] 12.0 mmol/L Normal [facility] Comment on above: Performed By: #### L IPID, LIVER, BMP #### [facility] [address] [place] [address] Dr. Aicha Keller Calcium [Mass/Vol] 8.9 mg/dL Normal 8.5-10.1 [facility] Comment on above: Performed By: #### L IPID, LIVER, BMP #### [facility] [address] [place] [address] Dr. Aicha Keller Chloride [Moles/Vol] 103 mmol/L Normal 98-107 [facility] Comment on above: Performed By: #### L IPID, LIVER, BMP #### [facility] [address] [place] [address] Dr. Aicha Keller CO2 [Moles/Vol] 28.5 mmol/L Normal 21.0-32.0 [facility] Comment on above: Performed By: #### L IPID, LIVER, BMP #### [facility] [address] [address] [address] Aicha Keller Creatinine [Mass/Vol] 1.13 mg/dL Normal 0.70-1.30 [facility] Comment on above: Performed By: #### L IPID, LIVER, BMP #### [facility] [address] [address] [address] Aicha Keller EGFR-AF SOMALI >60 Normal >=60 [facility] Comment on above: Performed By: #### L IPID, LIVER, BMP #### [facility] [address] [address] [address] Aicha Keller EGFR-NON AF SOMALI >60 Normal >=60 [facility] Comment on above: Performed By: #### L IPID, LIVER, BMP #### [facility] [address] [address] [address] Aicha Keller Glucose [Mass/Vol] 124 mg/dL Critically high 74-106 [facility] Comment on above: Performed By: #### L IPID, LIVER, BMP #### [facility] [address] [address] [address] Aicha Keller Potassium [Moles/Vol] 4.5 mmol/L Normal 3.5-5.1 [facility] Comment on above: Performed By: #### L IPID, LIVER, BMP #### [facility] [address] [address] [address] Aicha Keller Sodium [Moles/Vol] 139 mmol/L Normal 136-[address] [facility] Comment on above: Performed By: #### L IPID, LIVER, BMP #### [facility] [address] [address] [address] Aicha Keller Urea nitrogen [Mass/Vol] 9.0 mg/dL Normal 7.0-18.0 [facility] Comment on above: Performed By: #### L IPID, LIVER, BMP #### [facility] [address] [address] [address] Aicha Keller Urea nitrogen/Creatinine [Mass ratio] 8.0 mg/mg Normal [facility] Comment on above: Performed By: #### L IPID, LIVER, BMP #### [facility] [address] [address] [address] Aicha Keller VITAMIN D 25 OHon 10-17-2022 VIT D 25-OH 26.6 ng/mL Normal [facility] Comment on above: Performed By: #### V ITAD, PSASC #### [facility] [id number] Aicha Keller VIT D RANGES SEE BELOW Normal [facility] Comment on above: Result Comment: <20 ng/mL Vit D deficient 20 - <30 ng/mL Vit D insufficient 30 - 100 ng/mL Vit D sufficient >100 ng/mL Potential Toxicity Performed By: #### V ITAD, PSASC #### [facility] [address] [address] [address] Aicha Keller Vital Signs Date Time Vital Sign Value Performing Clinician Faci lity 09-23-2024 13:13040 Body height 172.7 cm Lobo Wylie MD Work Phone: [facility] 09-23-2024 13:13-0400 Body mass index (BMI) [Ratio] 29.65 kg/m2 Lobo Wylie MD Work Phone: [facility] 09-23-2024 13:13-0400 Body temperature 97.5 [degF] Lobo Wylie MD Work Phone: [facility] 09-23-2024 13:13-040 Body weight 88.45 kg Lobo Wylie MD Work Phone: [facility] 09-23-2024 13:13-0400 Diastolic blood pressure 70 mm[Hg] Lobo Wylie MD Work Phone: [facility] 09-23-2024 13:13-0400 Heart rate 71 /min Lobo Wylie MD Work Phone: [facility] 09-23-2024 13:13-0400 Respiratory rate 18 /min Lobo Wylie MD Work Phone: [facility] 09-23-2024 13:13-0400 SaO2% (BldA) [Mass fraction] 98 % Lobo Wylie MD Work Phone: [facility] 09-23-2024 13:13-0400 Systolic blood pressure 122 mm[Hg] Lobo Wylie MD Work Phone: [facility] 03-23-2024 13:24-0500 Body height 172.7 cm Lobo Wylie MD Work Phone: [facility] 03-23-2024 13:24-0500 Body mass index (BMI) [Ratio] 31.02 kg/m2 Lobo Wylie MD Work Phone: [facility] 03-23-2024 13:24-0500 Body temperature 97.81 [degF] Lobo Wylie MD Work Phone: [facility] 03-23-2024 13:24-0500 Body weight 92.53 kg Lobo Wylie MD Work Phone: [facility] 03-23-2024 13:24-0500 Diastolic blood pressure 58 mm[Hg] Lobo Wylie MD Work Phone: [facility] 03-23-2024 13:24-0500 Heart rate 87 /min Lobo Wylie MD Work Phone: [facility] 03-23-2024 13:24-0500 Respiratory rate 20 /min Lobo Wylie MD Work Phone: [facility] 03-23-2024 13:24-0500 SaO2% (BldA) [Mass fraction] 96 % Lobo Wylie MD Work Phone: [facility] 03-23-2024 13:24-0500 Systolic blood pressure 110 mm[Hg] Lobo Wylie MD Work Phone: [facility] Encounters Encounter Date Encounter Type Care Provider Facility Start: 09-29-2024 End: 09-29-2024 ambulatory KARLA [facility] Start: 09-23-2024 End: 09-23-2024 Bamboo flowsheet Lobo Wylie MD Work Phone: [facility] Start: 09-23-2024 End: 09-23-2024 Bamboo flowsheet Lobo Wylie MD Work Phone: [facility] Start: 09-23-2024 End: 09-23-2024 Patient encounter procedure Lobo Wylie MD Work Phone: [facility] Work Phone: Start: 09-23-2024 End: 09-23-2024 Postop follow up visit related to original px Lobo Wylie MD Work Phone: [facility] Comment on above: Medicare annual well ness visit, subsequent (Primary Dx); Chronic obstructive pulmonary disease, unspecified COPD type (CMS/HCC); Depressed bipolar I disorder in remission (CMS/HCC); Dyslipidemia (CMS/HCC); Encounter for long-term (current) use of medications; Essential hypertension, benign (CMS/HCC); Stage 3a chronic kidney disease (HCC) (CMS/HCC); Screening PSA (prostate specific antigen); Prediabetes; Class 1 obesity due to excess calories with serious comorbidity and body mass index (BMI) of 30.0 to 30.9 in adult Start: 09-23-2024 End: 09-23-2024 ambulatory LOBO WYLIE Not Available Start: 03-31-2024 End: 03-31-2024 ambulatory KARLA [facility] Start: 03-23-2024 End: 03-23-2024 Bamboo flowsheet Lobo Wylie MD Work Phone: [facility] Start: 03-23-2024 End: 03-23-2024 Bamboo flowsheet Lobo Wylie MD Work Phone: [facility] Start: 03-23-2024 End: 03-23-2024 Office outpatient visit 25 minutes Lobo Wylie MD Work Phone: [facility] Comment on above: Essential hypertensi on, benign (CMS/HCC) (Primary Dx); Chronic obstructive pulmonary disease, unspecified COPD type (CMS/HCC); Depressed bipolar I disorder in remission ([facility] [facility] Left carotid artery stenosis Start: 03-23-2024 End: 03-23-2024 ambulatory LOBO WYLIE Not Available Start: 12-09-2023 End: 12-09-2023 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 Aicha Keller Start: 09-11-2017 Colonoscopy Lobo valencia MD Work Phone: Plan of Treatment Date Care Activity Detail Author Start: 09-12-2027 Screening for malign ant neoplasm of colon [facility] Start: 03-29-2025 End: 03-29-2025 Patient encounter procedure 03/29/2025 1:00 PM EST Office Visit [facility] [address] [place] [address] Lobo Wylie MD [address] [place] [phone] [facility] Start: 09-23-2024 End: 09-23-2025 Basic metabolic 1998 panel - Serum or Plasma Basic metabolic panel Lab Routine Stage 3a chronic kidney disease (HCC) ([facility]/HCC) Expected: 09/23/2024 (Approximate), Expires: 09/23/2025 [facility] Comment on above: Expected: 09/23/2024 (Approximate), Expires: 09/23/2025 Start: 09-23-2024 End: 09-23-2025 CBC W Auto Differential panel - Blood CBC and differential Lab Routine Encounter for long-term (current) use of medications Expected: 09/23/2024 (Approximate), Expires: 09/23/2025 [facility] Comment on above: Expected: 09/23/2024 (Approximate), Expires: 09/23/2025 Start: 09-23-2024 End: 09-23-2025 Hemoglobin A1c/Hemoglobin.total in Blood Hemoglobin A1c Lab Routine Prediabetes Expected: 09/23/2024 (Approximate), Expires: 09/23/2025 [facility] Work Phone: Comment on above: Expected: 09/23/2024 (Approximate), Expires: 09/23/2025 Start: 09-23-2024 End: 09-23-2025 Hepatic function 2000 panel - Serum or Plasma Hepatic function panel Lab Routine Encounter for long-term (current) use of medications Expected: 09/23/2024 (Approximate), Expires: 09/23/2025 [facility] Comment on above: Expected: 09/23/2024 (Approximate), Expires: 09/23/2025 Start: 09-23-2024 End: 09-23-2025 Lipid 1996 panel - Serum or Plasma Lipid panel Lab Routine Dyslipidemia (CMS/HCC) Expected: 09/23/2024 (Approximate), Expires: 09/23/2025 [facility] Comment on above: Expected: 09/23/2024 (Approximate), Expires: 09/23/2025 Start: 09-23-2024 End: 09-23-2025 Prostate specific Ag [Mass/volume] in Serum or Plasma PSA Lab Routine Screening PSA (prostate specific antigen) Expected: 09/23/2024 (Approximate), Expires: 09/23/[address]25 [facility] Comment on above: Expected: 09/23/2024 (Approximate), Expires: 09/23/2025 Start: 09-23-2024 End: 09-23-2025 Thyrotropin [Units/volume] in Serum or Plasma TSH Lab Routine Class 1 obesity due to excess calories with serious comorbidity and body mass index (BMI) of 30.0 to 30.9 in adult Expected: 09/23/2024 (Approximate), Expires: 09/23/[address]25 [facility] Comment on above: Expected: 09/23/2024 (Approximate), Expires: 09/23/2025 Start: 09-23-2024 End: 09-23-2024 Patient encounter procedure [facility] Comment on above: Arrived Start: 03-23-2024 End: 03-23-2024 Patient encounter procedure 03/23/2024 1:15 PM EST Office Visit [facility] [address] [place] [address] Lobo Wylie MD [address] [place] [address] Arrived [facility] Comment on above: Arrived Start: 01-19-2024 Influenza vaccination [facility] Start: 07-08-2023 COVID-19 Vaccine ( season) COVID-19 Vaccine ( season) [facility] Start: 2014 Fall Risk Screening Fall Risk Screen ing [facility] Start: 1999 Administration of varicella zoster vaccine Zoster (Shingles) Vaccine (1 of 2) [facility] Start: 01-12-1968 DTaP,Tdap and Td Vac cines (1 - Tdap) DTaP,Tdap and Td Vaccines (1 - Tdap) [facility] Start: 01-12-1968 Pneumococcal Vaccine : 65+ Years (1 of 2 - PCV) Pneumococcal Vaccine: 65+ Years (1 of 2 - PCV) [facility] Start: 1967 Adult BMI Screening Adult BMI Screen ing [facility] Start: 1961 Depression Screening Depression Scre ening [facility] Start: 1961 Tobacco Screening Tobacco Screening [facility] Start: 1955 Pneumococcal Vaccine : 65+ Years (1 of 2 - PCV) Pneumococcal Vaccine: 65+ Years (1 of 2 - PCV) [facility] Start: 1949 Medicare Annual Well ness (AWV) Medicare Annual Wellness (AWV) [facility] Start: 1949 Medicare Annual Well ness Visit Medicare Annual Wellness Visit [facility] Start: 1949 Screening for malign ant neoplasm of colon [facility] Immunizations Immunization Date Immunization Notes Care Provider Fa cility 03-13-2024 influenza virus vaccine, unspecified formulation Lobo Wylie MD Work Phone: [facility] 03-07-2023 influenza virus vaccine, unspecified formulation Eboni Carroll [facility] Payers Date Payer Category Payer Medicare (Managed Care) [id number] 2023 Medicare [employer] MEDICARE UHC MEDICARE ADVANTAGE PPO [id number] 2023-Present [phone] [address] [address] [place] [address] [id number] 2021 Medicare [id number] 1959 Medicare [id number] 1959 Unknown [id number] 1949 Unknown [id number] 1949 Unknown [id number] 1949 Unknown [id number] 1949 Unknown [id number] 1949 Unknown [id number] 1949 Unknown [id number] Social History Date Type Detail Facility Start: 10-07-2023 [facility] History of tobacco use Cigarette Smoker [facility] Start: 10-07-2023 Tobacco use and exposure Smokeless tobacco non-user [facility] Start: 10-07-2023 End: 09-23-2024 History of Social function [facility] Start: 10-07-2023 End: 09-23-2024 Tobacco use panel [facility] Start: 1950 Sex assigned at Not on file P [facility] Tobacco smoking consumption unknown [facility] Childcare Unknown [facility] Functional Status Date Assessment Result Facility 09-23-2024 Patient Health [facility] ionnaire 2 item (PHQ-2) [Reported] [facility] History of Present illness Narrative 09-23-2024 Lobo Wylie MD - 09/23/2024 1:35 PM EDAggie Wylie MD - 09/23/2024 1:35 PM Jena Wylie MD - 09/23/2024 1:34 PM Jena Wylie MD - 09/23/2024 1:00 PM EDT Note Date & Type Note Facility 09-23-2024 History of Presen t illness Narrative Associated Problem(s): Medicare annual wellness visit, subsequent Due for labs. Discussed proper diet and regular aerobic exercise. Need aerobic exercise 5-6 days a week for 30 minutes at a time. Smaller portions and limit total calories. Colonoscopy every 10 years. Tetanus every 10 years. Advised not to smoke. Associated Problem(s): Depressed bipolar I disorder in remission (CMS/[facility]) Symptoms controlled with medication and continue. Follow up with psychiatry. Associated Problem(s): COPD (chronic obstructive pulmonary disease) (CMS/HCC) Breathing stable and continue incruse. Use albuterol PRN. Images from the original note were not included. Subjective Patient ID: Debra Amin is a 74 y.o. male who presents for Medicare Annual Wellness Visit Subsequent (wellness). Presents for medicare annual wellness visit. Feels well today and no concerns. Weight down 9 pounds in the past year. Tries to stay active around house but no regular exercise. Tries to watch diet and eat healthy. Increased fruits and vegetables. Smaller portions and limits snacking. Tries to limit total daily calories. Due for labs. Mood controlled with medication. COPD stable and hasn't needed albuterol in several months. Review of Systems Constitutional: Negative for fatigue. [...] There is no guarding or rebound. Musculoskeletal: General: Normal range of motion. Left lower leg: No edema. Neurological: General: No focal deficit present. Mental Status: He is alert. Cranial Nerves: No cranial nerve deficit. Deep Tendon Reflexes: Reflexes normal. Assessment/Plan Problem List Items Addressed This Visit Essential hypertension, benign (CMS/HCC) Depressed bipolar I disorder in remission (CMS/HCC) Symptoms controlled with medication and continue. Follow up with psychiatry. COPD (chronic obstructive pulmonary disease) (CMS/HCC) Breathing stable and continue incruse. Use albuterol PRN. Dyslipidemia (CMS/HCC) Relevant Orders Lipid panel Prediabetes Relevant Orders Hemoglobin A1c Stage 3a chronic kidney disease (HCC) (CMS/HCC) Relevant Orders Basic metabolic panel Encounter for long-term (current) use of medications Relevant Orders CBC and differential Hepatic function panel Screening PSA (prostate specific antigen) Relevant Orders PSA Medicare annual wellness visit, subsequent - Primary Due for labs. Discussed proper diet and regular aerobic exercise. Need aerobic exercise 5-6 days a week for 30 minutes at a time. Smaller portions and limit total calories. Colonoscopy every 10 years. Tetanus every 10 years. Advised not to smoke. Class 1 obesity due to excess calories with serious comorbidity and body mass index (BMI) of 30.0 to 30.9 in adult Relevant Orders TSH documented in this encounter [facility] History of Present illness Narrative 03-23-2024 Lobo Wylie MD - 03/23/2024 2:01 PM Cornelio [...] note were not included. Subjective Patient ID: Debra Amin is a 74 y.o. male who presents [...] visit. documented in this encounter [facility] Note 12-09-2023 Psychiatric Progress Note - Eboni Carroll CMA - 12/09/2023 1:52 PM EDT Note Date & Type Note Facility 12-09-2023 Miscellaneous Notes Formattin g of this note might be different from the original. Refill Request recieved via patient phone call patient states he only has 3 tablets left Medication name, dosage & directions: XANAX 10 MG TAKE 1 TABLET (1 MG TOTAL) BY MOUTH IN THE MORNING AND 11 TABLET (1 MB TOTAL) BEFORE BEDTIME Pharmacy: [facility] Any side effects?: No Currently or ?: No Last appointment: 09/26/2023 Per Note RTC: 6 months Next appointment scheduled: 03/31/2024 Last fill date: 09/11/2023 If Controlled: Oarrs completed? yes documented in this encounter [facility] Progress note 12-09-2023 Psychiatric Progress Note - Eboni Carroll CMA - 12/09/2023 1:52 PM EDT Note Date & Type Note Facility 12-09-2023 Progress note Formatting of t his note might be different from the original. Refill Request recieved via patient phone call patient states he only has 3 tablets left Medication name, dosage & directions: XANAX 10 MG TAKE 1 TABLET (1 MG TOTAL) BY MOUTH IN THE MORNING AND 11 TABLET (1 MB TOTAL) BEFORE BEDTIME Pharmacy: [facility] [place] Any side effects?: No Currently or ?: No Last appointment: 09/26/2023 Per Note RTC: 6 months Next appointment scheduled: 03/31/2024 Last fill date: 09/11/2023 If Controlled: Oarrs completed? yes [facility] Evaluation note Note Date & Type Note [...] carotid artery stenosis documented in this encounter [facility] Evaluation note Note Date & Type Note Facility Evaluation note Diagnosis Panic disorder Panic disorder without agoraphobia documented in this encounter [facility] Evaluation note Note Date & Type Note Facility Evaluation note Diagnosis Essential hypertension, benign (CMS/HCC)- Primary Essential hypertension, benign Chronic obstructive pulmonary disease, unspecified COPD type (CMS/HCC) Depressed bipolar I disorder in remission (CMS/HCC) Bipolar I disorder, most recent episode (or current) depressed, in full remission Dyslipidemia (CMS/HCC) Other and unspecified hyperlipidemia Prediabetes Other abnormal glucose Stage 3a chronic kidney disease (HCC) ([facility]/HCC) Vitamin D deficiency Encounter for long-term (current) [...] in full remission Left carotid artery stenosis Medicare annual wellness visit, subsequent- Primary Chronic obstructive pulmonary disease, unspecified COPD type (CMS/HCC) Depressed bipolar I disorder in remission ([facility]/HCC) Bipolar I disorder, most recent episode (or current) depressed, in full remission Dyslipidemia ([facility]/HCC) Other and unspecified hyperlipidemia Encounter for long-term (current) use of medications Encounter for long-term (current) use of other medications Essential hypertension, benign (CMS/HCC) Essential hypertension, benign Stage 3a chronic kidney disease (HCC) ([facility]/HCC) Screening PSA (prostate specific antigen) Special screening for malignant neoplasm of prostate Prediabetes Other abnormal glucose Class 1 obesity due to excess calories with serious comorbidity and body mass index (BMI) of 30.0 to 30.9 in adult documented in this encounter [facility] Instructions Note Date & Type Note Facility Instructions Not on filedocumented in this en counter [facility] Summary Purpose Family History No Family History Records FoundNo Family History Records FoundNo Family History Records Found Advance Directives No Advanced Directives Records FoundNo Advanced Directives Records FoundNo Advanced Directives Records Found Additional Source Comments (unrecognized sect ion and content) No Status Records FoundNo Status Records FoundNo Status Records Found INFORMATION SOURCE (unrecogn ized section and content) DATE CREATED AUTHOR 10/26/2022 [facility] DATE CREATED AUTHOR AUTHOR'S ORGANIZ ATION 09/26/2024 [facility] EPIC DATE CREATED AUTHOR AUTHOR'S ORGANIZ ATION 09/30/2024 [facility] Care Teams (unrecognized sec tion and content) Discharge Door Operator Relationship Specialty Start Date End Date Lobo Wylie MD [address] [place] [phone] PCP - General Family Medicine 10/07/23 Lobo Wylie MD [address] [place] [phone] PCP - [facility] 12/19/23 01/17/69 Discharge Door Operator Relationship Specialty Start Date End Date Lobo Wylie MD [address] [place] [phone] PCP - General Family Medicine 10/07/23 Lobo Wylie MD [address] [place] [address] PCP - [facility] 12/19/23 01/17/69 Discharge Door Operator Relationship Specialty Start Date End Date Lobo Wylie MD [address] [facility] [place] [address] PCP - General Family Medicine 06/26/18 Discharge Door Operator Relationship Specialty Start Date End Date Lobo Wylie MD [address] [place] [phone] PCP - General Family Medicine 10/07/23 Lobo Wylie MD [address] [place] [phone] [facility] 12/19/23 01/17/69 Discharge Door Operator Relationship Specialty Start Date End Date Lobo Wylie MD [address] [place] [address] PCP - General Family Medicine 10/07/23 Lobo Wylie MD [address] [place] [address] [facility] 12/19/23 01/17/69 Reason for Visit (unrecogniz ed section and content) Reason Comments Follow-up 6 m Reason Onset Date Comments Med Refill 12/09/2023 Reason Comments Medicare Annual Wellness Visit Subsequen t wellness FOR RECORDS PERTAINING TO PATIENTS WHO ARE [...] BE BASED ON THE PRIMARY CLINICAL RECORDS. [facility]. provides no warranty or guarantee of the accuracy or completeness of information in this document.
[2024-10-15 14:32] LABS: Basophils Absolute Auto 0.1 10^3/uL (0.0-0.1); Basophils Percent Auto 0.7 % (0.2-2.0); Eosinophils Absolute Auto 0.2 10^3/uL (0.0-0.7); Eosinophils Percent Auto 1.9 % (0.9-7.0); Hematocrit 45.6 % (42.0-54.0); Hemoglobin 15.9 g/dL (14.0-18.0); Immature Granulocytes Abs Auto 0.03 10^3/uL (0.00-0.03); Immature Granulocytes Pct Auto 0.4 % (0.0-0.5); Lymphocytes Absolute Auto 2.1 10^3/uL (1.2-3.8); Lymphocytes Percent Auto 24.9 % (20.5-60.0); Mean Corpuscular HGB Conc 34.9 g/dL (29.9-35.2); Mean Corpuscular Hemoglobin 33.4 pg (25.9-34.0); Mean Corpuscular Volume 95.8 fL (80.0-94.0); Mean Platelet Volume 9.3 fL (9.5-13.5); Monocytes Absolute Auto 0.4 10^3/uL (0.3-0.8); Neutrophils Absolute Auto 5.7 10^3/uL (1.4-6.5); Neutrophils Percent Auto 67.1 % (43.0-75.0); Platelet Count 200 10^3/uL (150-450); Red Blood Count 4.76 10^6/uL (4.70-6.10); Red Cell Distribution Width 12.6 % (11.0-15.0); White Blood Count 8.4 10^3/uL (4.0-11.0)
[2024-10-15 15:04] LABS: Alanine Aminotransferase 25 U/L (16-63); Albumin Level 3.8 g/dL (3.4-5.0); Alkaline Phosphatase 67 U/L (46-116); Anion Gap 13.1; Aspartate Amino Transferase 17 U/L (15-37); Bilirubin Direct 0.1 mg/dL (0.0-0.2); Bilirubin Total 0.5 mg/dL (0.2-1.0); Calcium 9.4 mg/dL (8.5-10.1); Carbon Dioxide 29.6 mmol/L (21.0-32.0); Chloride 104 mmol/L (98-107); Chol HDL Ratio 3.7; Cholesterol 158 mg/dL (<=200); Estimated Average Glucose 111 mg/dL; Estimated GFR (African America >60 (>=60 mL/min/1.73m^2); Estimated GFR (Non-African Ame >60 (>=60 mL/min/1.73m^2); Globulin 3.8 g/dL; Glucose 116 mg/dL (74-106); Glycohemoglobin A1C 5.5 % (4.5-6.2); HDL Cholesterol 43 mg/dL (40-60); LDL Cholesterol Calculated 96.2 mg/dL; Potassium 4.7 mmol/L (3.5-5.1); Sodium 142 mmol/L (136-145); Thyroid Stimulating Hormone 1.013 uIU/mL (0.358-3.740); Total Protein 7.6 g/dL (6.4-8.2); Triglycerides 94 mg/dL (<=150); VLDL CHOLESTEROL 18.8 mg/dL
[2024-10-15 15:51] LABS: Prostate Specific Antigen Scrn 4.28 ng/mL (<=4.00)
== END 2024-10-15 14:03 | disposition home or self-care (01) ==
LOC: LAB 14:07
PROVIDERS: PCP Family Medicine; Visit Provider Family Medicine
DX: E78.5 Hyperlipidemia, unspecified (principal); R73.03 Prediabetes; N18.31 Chronic kidney disease, stage 3a; Z79.899 Other long term (current) drug therapy; Z12.5 Encounter for screening for malignant neoplasm of prostate; E66.811 Obesity, class 1; E66.09 Other obesity due to excess calories; Z68.30 Body mass index [BMI] 30.0-30.9, adult
CPT/HCPCS: 36415; 80048; 80061; 80076; 83036; 84443; 85025; G0103

== ENCOUNTER 2025-04-07 13:53 | Outpatient (OUT) | payer MEDICARE, SELFPAY ==
--- OUTSIDE RECORDS SUMMARY | 2025-03-29 08:39 | XMS_ITS | Continuity of Care Document ---
Author Organization [facility] Address [address] [place] [address] Phone Care Team Providers Care Metal Engraver Name Role Phone Lobo Michele MD Primary Care Provider [phone] Lobo Michele MD Attending Provider Care Teams Patient Care Team Team Status: Active Member Role/Relationship Status Dates oLbo Michele MD Primary Care Provider Active Patient Care Team Team Status: Inactive Member Role/Relationship Status Dates Lobo Michele MD Primary Care Provider Active S tart: March 29, 2025 End: March 29, 2025Marc LUKE Michelettending ProviderActiveStart: March 29, 2025 End: March 29, 2025 Chief Complaint and Reason for Visit Chief Complaint Admit Date Established Patient March 29, 2025 1:06pm Reason for Visit Admit Date BPH associated with nocturia March 292024 1:06pm COPD (chronic obstructive pulmonary dise ase) March 29, 2025 1:06pm Depressed bipolar I disorder in on license of [facility] n March 29, 2025 1:06pm Essential hypertension, benign March 29, 2025 1:06pm Generalized anxiety disorder March 292024 1:06pm Left carotid artery stenosis March 292024 1:06pm Allergies, Adverse Reactions, Alerts Allergen Type Severity Reaction Last Updated Verified Status No Known Allergies Allergy Unknown March 29, 2025 1:14pmYesActive Social History Smoking Status Status Start Date End Date Date of Observa tion Smokes tobacco daily (finding) March 29, 2025 1:15pm Observation Status Observation Response Date of Response Legal Sex [facility] (finding) [facility] 1949 Problems Active Problems Problem Diagnosis/Recorded Date Onset Date Stat us Medicare annual wellness vis it, subsequent March 29, 2025 1:24pm Unknown Active Depressed bipolar I disorder in remission March 25, 2025 1:16pm Unknown Active Obstructive sleep apnea March 25, 2025 1:16pm Unkn own Active Generalized anxiety disorder March 25, 2025 1:16pm Unknown Active Benign paroxysmal vertigo of both ears March 25 1:15pm Unknown Active Essential hypertension, benign March 25, 2025 1:16 pm Unknown Active Dyslipidemia March 25, 2025 1:16pm Unknown Ac tive Encounter for long-term (cur rent) use of medications March 29, 2025 1:24pm Unknown Active Prediabetes March 25, 2025 1:17pm Unknown Ac tive COPD (chronic obstructive pu lmonary disease) March 25, 2025 1:15pm Unknown Active Stage 3a chronic kidney disease March 25, 2025 1:1 7pm Unknown Active Left carotid artery stenosis March 25, 2025 1:16pm Unknown Active BPH associated with nocturia March 29, 2025 1:33p m Unknown Active Vitamin D deficiency March 25, 2025 1:17pm Unknown Active Medications Medication Status Dose Units Route Directions Qty Days Refills S tart Date Stop Date End Date Reason(s) Instructions Adherence Umeclidinium (Incruse Ellipt a) 62.5 mcg/actuation blister with device Active 1 INH INHALATION Daily 30 [facility] 20[facility] 11:00pmComplies with drug therapyLamotrigine 150 mg tablet Fsrqtz390XKHEKsmfiUmhwfpar 6th, 2025 12:00amComplies with drug therapyAlprazolam 1 mg vilxsnFzjeak7VVQWHtdcg dailyQuorum Health2024 12:00amComplies with drug therapyLisinopril 10 mg crjorfAvxgcb79PAOJVuntxWnhzuvub 6th, 2025 12:00am Complies with drug therapyAlbuterol Sulfate 90 mcg/actuation HFA aerosol inhaler Gntalh8NSPNFVRFJZVVGMNlgsr 4 hours as neededQuorum Health2024 12:00amComplies with drug therapyCholecalciferol (Vitamin D3) 50 mcg (2,000 unit) dhvvqvFwdxak61 MCGPODailyQuorum Health2024 12:00amComplies with drug therapy Vital Signs Vital Reading Result Reference Range Collection Date/Time Height 69 [in_i] March 29, 2025 1:28wsAvkurv75.99 kgMarch 29, 2025 1:13pmBody Abtgomlvyfn37.5 [degF]97.6-99.0March 29, 2025 1:13pmHeart Rate73 /ysf20-540 March 29, 2025 1:13pmRespiratory rate18 /ggu75-38AbtjbzbgMarch 29, 2025 1:13pm Oxygen saturation by Pulse plxwlxse10 %95-100March 29, 2025 1:13pmBP Yykhzyeb212 mm[Hg]100-140March 29, 2025 1:13pmBP Ljosdjxcm58 mm[Hg]60-100 March 29, 2025 1:13pmBMI (Body Mass Index)28.6 kg/u0XoyjmwtxMarch 29, 2025 1:13pm Advance Directives Advance Directive Response Recorded Date/ Time Advance Directives No March 1:03pm Insurance Providers Guarantor Brian Amin Address [address] [place] [phone] Info.Home Phone: C Coverage Status Update:2025 Payer Group Member ID Coverage Type Subscriber Relationship to Subscriber Effective Date Expiration Date [employer] [address] [address] [facility] [address] Work Phone: [phone] H Henson Id: [id number] [address] [place] [phone] Home Phone: CSelfUnited Healthcare [facility] PFFS [id number] H Amin Id: [id number] [address] [place] [phone] Home Phone: CSelf Encounters Encounter Location(s) Arrival/Admit Date Discharge/Departure Date Discharge/Departure Disposition Provider(s) Departed Physician/ Provider Office Visit -[facility] Family Medicine Andreas March 29, 2025 1:06pm March 29, 2025 1:38pm Discharged to home care or self care (routine discharge) Lobo Michele MD Recent Diagnosis Onset Date Admit Date BPH associated with nocturia Unknown Mar 1:06pm COPD (chronic obstructive pulmonary disease) Unk nown March 29, 2025 1:06pm Depressed bipolar I disorder in remission Unknow n March 29, 2025 1:06pm Essential hypertension, benign Unknown N ov2024 1:06pm Generalized anxiety disorder Unknown Mar 1:06pm Left carotid artery stenosis Unknown Mar 1:06pm Assessments Diagnosis Onset Date Resolution Status Admit Date BPH associated with nocturia acuteMarch 29, 2025 1:06pmCOPD (chronic obstructive pulmonary disease)acute March 29, 2025 1:06pmDepressed bipolar I disorder in remissionacuteMarch 29, 2025 1:06pmEssential hypertension, benignacuteMarch 29, 2025 1:06pm Generalized anxiety disorderacuteMarch 29, 2025 1:06pmLeft carotid artery stenosisacuteMarch 29, 2025 1:06pm Plan of Treatment Future Tests Future scheduled test information is unavailable Pending Tests Test Name Ordered Date Scheduled Date US carotid doppler BI March 29, 2025 1:34pm Future Visits Future appointment information is unavailable Future Procedures Future procedure information is unavailable Future Medications Future medication information is unavailable Patient Instructions Patient instructions are unavailable
--- OUTSIDE RECORDS SUMMARY | 2025-04-07 13:57 | XMS_ITS | Clinical Summary ---
Author Organization [facility] tem Address [id number] [address] [place] [address] Care Team Providers Care It Project Lead Name Role Phone Lobo Michele MD Primary Care Provider [phone] Allergies No known active allergies Medications * This document contains information received from the source organization and may not represent a complete record from that organization. MedicationSigDispense QuantityRefillsLast FilledStart DateEnd DateStatus INCRUSE ELLIPTA 62.5 mcg/actuation blister with device 06/12/2020ctive albuterol (PROVENTIL HFA;VENTOLIN HFA) 90 mcg/actuation inhaler Inhale 2 puffs every 4 (four) hours as needed.07/12/2020ctive lisinopriL (PRINIVIL,ZESTRIL) 10 mg tablet Take 1 tablet (10 mg total) by mouth in the morning.02/27/2022ctive cholecalciferol, vitamin D3, 2,000 units tablet 4Active lamoTRIgine (LaMICtal) 200 mg tablet Indications:Major depressive disorder, recurrent episode, moderate (CMS-HCC)Take 1 tablet (200 mg total) by mouth in the morning. 90 tablet 5Active ALPRAZolam (XANAX) 1 mg tablet Indications:Panic disorderTake 1 tablet (1 mg total) by mouth 2 (two) times a day as needed for anxiety. 180 tablet 5Active ALPRAZolam (XANAX) 1 mg tablet Indications:Panic disorderTake 1 tablet (1 mg total) by mouth 2 (two) times a day as needed for anxiety. 180 tablet 5106/06/2024Discontinued(Reorder) Active Problems ProblemNoted DateDiagnosed DateChronic frfsgjuzni37/04/2021Major depressive disorder, recurrent episode, nirnwosc92/04/2017Panic pbgvnqir33/04/2017 Encounters * This document contains information received from the source organization and may not represent a complete record from that organization. DateTypeDepartmentCare FbupOoypjyigzuy36/18/2025Travelfrom Last 3 Months Social History Tobacco UseTypesPacks/DayYears UsedDateSmoking Tobacco: Never AssessedChildcare AnswerDate ElplrtbrUovjuvggqRkhhhci04/12/2019EmploymentAnswerDate Recorded XsfdbkjlkvKwfwwju69/12/2019Hunger ScreeningAnswerDate RecordedWithin the past 12 months we worried whether our food would run out before we got money to buy more.Never True04/06/2025Within the past 12 months the food we bought just didn't last and we didn't have money to get more.Never True04/06/2025Purpose - LifeAnswerDate RecordedPurpose and direction in vntgZwvvzqm20/27/2021ex and Gender InformationValueDate RecordedSex Assigned at BirthNot on fileLegal Sex Male12/23/2014 11:25 AM EDTGender IdentityNot on fileSexual OrientationNot on file Last Filed Vital Signs Vital SignReadingTime TakenCommentsBlood Wciemgst000/6004/06/2025 12:51 PM EST Xkoik751004/06/2025 12:51 PM ESTTemperature--Respiratory Rate--Oxygen Saturation-- Inhaled Oxygen Concentration--Ufqxjf17.4 kg (197 lb)09/29/2024 12:48 PM EDT Height--Body Mass Index-- Plan of Treatment Health MaintenanceDue DateLast DoneCommentsDepression Ldczrkvkv25/25/1961Tobacco Ibcmucfiz97/25/1961TaP,Tdap and Td Vaccines (1 - Tdap)01/12/1968Zoster (Shingles) Vaccine (1 of 2)1999Fall Risk Oumqvrdnh69/25/2014RSV ( or age 60+ yrs) (1 - 1-dose 75+ series)4COVID-19 Vaccine (2024- season)61, 03/13/2024, 03/07/2023, Additional history exists Influenza TorukxrEqdkflhus12/17/2025, 03/13/2024, 03/07/2023, Additional history exists Medical Devices Not on file Insurance * Guarantor: Brian Amin TypeRelation to PatientDate of BirthPhone Billing AddressPersonal/SfbyzjAiqq1950 [address] [address] [address] [place] [address] Care Teams Team MemberRelationshipSpecialtyStart DateEnd Date Lobo Michele MD PCP - Generalmily Medicine06/26/18
--- OUTSIDE RECORDS SUMMARY | 2025-04-07 13:57 | XMS_ITS | Clinical Summary ---
Author Organization [facility] Address [address] [place] [address] Care Team Providers Care Dorr Operator Name Role Phone Lobo Michele MD Primary Care Provider Lobo Michele MD Unavailable Allergies No known active allergies Medications MedicationSigDispense QuantityRefillsLast FilledStart DateEnd DateStatus ALPRAZolam (Xanax) 1 MG tablet Take 1 mg by mouth in the morning and 1 mg in the evening.4Active lamoTRIgine (LaMICtal) 150 MG tablet Take 1 tablet by mouth DailyActive cholecalciferol (Vitamin D-3) 50 MCG (1999) tablet Indications:Vitamin D deficiency, unspecifiedTAKE 1 TABLET BY MOUTH DAILY 90 tablet 4Active albuterol HFA 90 mcg/act inhaler Indications:Chronic obstructive pulmonary disease, unspecified COPD type (HCC) Inhale 2 puffs every 4 (four) hours if needed for wheezing or shortness of breath 18 g 4Active Umeclidinium Cheriton (Incruse Ellipta) 62.5 MCG/ACT aerosol powder Indications:Chronic obstructive pulmonary disease, unspecified (HCC)INHALE 1 PUFF BY MOUTH DAILY 30 each 5Active lisinopril 10 MG tablet Indications:Essential (primary) hypertensionTAKE 1 TABLET BY MOUTH DAILY 90 tablet 5Active Active Problems ProblemNoted DateDiagnosed DateMedicare annual wellness visit, subsequent 09/23/2024 Assessment & Plan (09/23/2024 1:35 PM EDT): Due for labs. Discussed proper diet and regular aerobic exercise. Need aerobic exercise 5-6 days a week for 30 minutes at a time. Smaller portions and limit total calories. Colonoscopy every 10 years. Tetanus every 10 years. Advised not to smoke. Class 1 obesity due to excess calories with serious comorbidity and body mass index (BMI) of 30.0 to 30.9 in adult09/23/2024Left carotid artery stenosis 03/23/2024 Assessment & Plan (03/23/2024 2:01 PM EST): Found blockage but no symptoms. Check US next visit. Essential hypertension, sfqzyi1210/07/2023 Assessment & Plan (03/23/2024 2:00 PM EST): BP controlled and monitor PRN. Assessment & Plan (10/07/2023 12:09 PM EDT): BP controlled and monitor PRN. Depressed bipolar I disorder in ouivujwsb72/20/2024 Assessment & Plan (09/23/2024 1:35 PM EDT): Symptoms controlled with medication and continue. Follow up with psychiatry. Assessment & Plan (03/23/2024 2:00 PM EST): Symptoms controlled with medication and continue. Follow up with psychiatry. Assessment & Plan (10/07/2023 12:07 PM EDT): Symptoms controlled with medication and continue. Follow up with psychiatry. Benign paroxysmal vertigo of both ears4COPD (chronic obstructive pulmonary disease)10/07/2023 Assessment & Plan (09/23/2024 1:34 PM EDT): Breathing stable and continue incruse. Use albuterol PRN. Assessment & Plan (03/23/2024 2:00 PM EST): Breathing stable and continue incruse. Use albuterol PRN. Assessment & Plan (10/07/2023 12:07 PM EDT): Breathing stable and continue incruse. Use albuterol PRN. Geancoptzemf36/20/2024Generalized anxiety /20/2024Obstructive sleep apnea10/07/20234301Maoibikkmvk64/20/2024Stage 3a chronic kidney bryymsy1010/07/2023 Vitamin D zaekrqtbtv14/20/2024Encounter for long-term (current) use of spgoldarhin31/20/2024Screening PSA (prostate specific antigen)10/07/2023 Social History Tobacco UseTypesPacks/DayYears UsedDateSmoking Tobacco: Every DayCigarettes Smokeless Tobacco: NeverPHQ-2AnswerDate RecordedPatient Health Questionnaire-2 Iqgph633Sex and Gender InformationValueDate RecordedSex Assigned at BirthNot on fileLegal WsbSjuu5308/01/2022 6:50 PM EDTGender IdentityNot on file Sexual OrientationNot on file Last Filed Vital Signs Vital SignReadingTime TakenCommentsBlood Xjycbfzf707/70009/23/2024 1:13 PM EDT Xatrp392709/23/2024 1:13 PM AASUekmmbgladc70.4 ??C (97.5 ??F)09/23/2024 1:13 PM EDTRespiratory Ghcv472609/23/2024 1:13 PM EDTOxygen Xumxmlmcab43%09/23/2024 1:13 PM EDTInhaled Oxygen Concentration--Dszlgq42.5 kg (195 lb)09/23/2024 1:13 PM EDT Ubltlj715.7 cm (5' 8 )09/23/2024 1:13 PM EDTBody Mass Index29.65009/23/2024 1:13 PM EDT Plan of Treatment Health MaintenanceDue DateLast DoneCommentsPneumococcal Vaccine: 65+ Years (1 of 2 - PCV)01/12/1969COVID-19 Vaccine ( - 2024- season), 05/03/2021, 02/20/2021, Additional history existsInfluenza Vaccine (#1) , 03/07/2023, 03/03/2022, Additional history existsMedicare Annual Wellness (AWV)05/07/550196/07/8417DqzefxuobytEjuvsrurwire03/25/2018 Colorectal Cancer ScreeningDiscontinuedCT ColonographyDiscontinuedFIT-DNA DiscontinuedFITDiscontinuedFOBTDiscontinuedSigmoidoscopyDiscontinued Insurance Care Teams Team MemberRelationshipSpecialtyStart DateEnd Date [facility]obo Michele [facility] - [facility] Lobo Michele MD [address] [place] [address] PCP - [facility]/
--- OUTSIDE RECORDS SUMMARY | 2025-04-07 13:57 | XMS_ITS | Patient Health Record ---
Author Organization [facility] Address [address] [place] [id number] Care Team Providers Care Mannequin Sander And Finisher Name Role Phone Melisa Coughlin Unavailable [phone] Luis Irene Unavailable [phone] Allergies No Known Allergies Reason For Referral No Information Medications Medication SIG (Take, Route, Frequency, Duration) Notes Start Date End Date Status lamoTRIgine ActiveIncruse ElliptaActiveALPRAZolamActiveLisinopril-hydroCHLOROthiazideActive Social History Sex Assigned At : Social History Observation Description Sex Assigned At Male Vital Signs Heart Rate 71 /min 12/21/2024 Blood pressure tgzadswzn14 mm Hg12/21/2024Weight-kg86.18 kg12/21/20240927Wsqrzw42 in 12/21/2024lood pressure jojttvpi789 mm Hg12/21/20241719Nhrtqp018 lbs12/21/2024MI 28.06 kg/m212/21/2024 Encounters Encounter Location Date Provider Diagnosis [facility] [address] [place], [place] [id number] 12/21/2024 Luis Irene 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
--- OUTSIDE RECORDS SUMMARY | 2025-04-07 13:57 | XMS_ITS | Encounter Summary ---
Author Organization [facility] tem Address [facility] [id number] [address] [place] [address] Care Team Providers Care Medical Field Representative Name Role Phone Lobo Michele MD Primary Care Provider [phone] Encounter Details DateTypeDepartmentCare Team (Latest Contact Info)Hduomnmrwum78/18/2025Travel Social History Tobacco UseTypesPacks/DayYears UsedDateSmoking Tobacco: Never AssessedChildcare AnswerDate RdefphwlSypdfyzsrOfksvvi47/12/2019EmploymentAnswerDate Recorded UyxsaidqypNgqlwih09/12/2019Hunger ScreeningAnswerDate RecordedWithin the past 12 months we worried whether our food would run out before we got money to buy more.Never True04/06/2025Within the past 12 months the food we bought just didn't last and we didn't have money to get more.Never True04/06/2025Purpose - LifeAnswerDate RecordedPurpose and direction in slefZohruex51/27/2021ex and Gender InformationValueDate RecordedSex Assigned at BirthNot on fileLegal Sex Male12/23/2014 11:25 AM EDTGender IdentityNot on fileSexual OrientationNot on filedocumented as of this encounter Plan of Treatment Not on file documented as of this encounter Visit Diagnoses Not on filedocumented in this encounter Care Teams Team MemberRelationshipSpecialtyStart DateEnd Date Lobo Michele MD PCP - GeneralFamily Medicine06/26/18documented as of this encounter
--- OUTSIDE RECORDS SUMMARY | 2025-04-07 13:57 | XMS_ITS | Patient Health Record ---
Author Organization [facility] [place] Address [address] [place] [address] Support Name Relationship Address Phone Vibha Varsha Emergency Contact Unknown [phone] Brian Amin Guarantor Unknown [phone] Reason For Referral No Information Plan Of Treatment No Information Insurance Providers Payer Name Payer Address Payer Phone Subscriber Number Group Number Insured Name Patient Relationship to Insured Coverage Start Date Coverage End Date SELF PAY ON PATIENT DEMOGRAPHICS Anuradha Amin - patient is the xwmgmni1109/16/2007
--- OUTSIDE RECORDS SUMMARY | 2025-04-07 13:59 | XMS_ITS | CCD ---
Author Organization [facility] Care Team Providers Care District Traffic Chief Name Role Phone DR LOBO WYLIE Attending Unavailable INESSA, DR LOBO West Consulting Unavailable INESSA, DR LOBO West Primary Care Unavailable INESSA, DR LOBO West Admitting Unavailable Lobo Wylie MD Primary Care Provider [phone] Lobo Wylie MD Unavailable Lobo Wylie MD Primary Care Provider LOBO WYLIE Attending Unavailable LOBO WYLIE Attending Unavailable LOBO WYLIE Attending Unavailable KARLA STACY Attending Unavailable LOBO WYLIE Referring Unavailable LOBO WYLIE Primary Care Unavailable KARLA STACY Attending Unavailable LOBO WYLIE Referring Unavailable LOBO WYLIE Primary Care Unavailable Lobo Wylie MD Primary Care Provider Lobo Wylie MD Primary Care Provider [phone] Lobo Wylie MD Attending Provider [phone] Medications Current Medications MedicationDrug Class(es)DatesSig (Normalized)Sig (Original)[id number] 200 actuat albuterol 0.09 mg/actuat metered dose inhaler (11 sources)beta2-Adrenergic AgonistStart: 06-93-5702qdui 1 puff(s) by inhalation every four hours as neededAlbuterol Sulfate 90 mcg/actuation HFA aerosol inhaler Active 2 PUFF INHALATION Every 4 hours as needed March 25, 2025 12:00am Complies with drug therapyStart: 03-23-2024 End: 84-05-6665cinm 2 puff(s) by inhalation every four hours for wheezing albuterol HFA 90 mcg/act inhaler Indications: Chronic obstructive pulmonary disease, unspecified COPD type ([facility]) Inhale 2 puffs every 4 (four) hours if needed for wheezing or shortness of breath 18 g 5 03/23/2024 ActiveStart: 10-83-6167qvko 2 puff(s) by inhalation every four hours as neededalbuterol (PROVENTIL HFA;VENTOLIN HFA) 90 mcg/actuation inhaler Inhale 2 puffs every 4 (four) hoursas needed. 07/12/2020 ActiveALPRAZolam 1 mg oral tablet (11 sources)BenzodiazepineStart: 75-36-4255ibnn 1 tablet by mouth twice daily Alprazolam 1 mg tablet Active 1 MG PO Twice daily March 25, 2025 12:00am Complies with drug therapyStart: 29-67-2943najq 1 tablet by mouth twice daily as needed for anxietyALPRAZolam (XANAX) 1 mg tablet Indications: Panic disorder Take 1 tablet (1 mg total) by mouth 2 (two) times a day as needed for anxiety. 180 tablet 1 09/29/2024 ActiveStart: 09-11-2023 End: 48-74-1417wzvy 1 tablet by mouth in the morningALPRAZolam (Xanax) 1 MG tablet Take 1 mg by mouth in the morning and 1 mg in the evening. 09/11/2023 Activecholecalciferol 0.05 mg oral tablet (10 sources)Vitamin DStart: 06-07-1855dhsz 1 tablet by mouth once daily Cholecalciferol (Vitamin D3) 50 mcg (2,000 unit) tablet Active 50 MCG PO Daily March 25, 2025 12:00am Complies with drug therapyStart: 09-21-2023 cholecalciferol, vitamin D3, 2,000 units tablet 09/21/2023 ActiveStart: 14-78-3894gttz 1 tablet by mouth once dailycholecalciferol (Vitamin D-3) 50 MCG (2000 UT) tablet Indications: Vitamin D deficiency, unspecified TAKE 1 TABLET BY MOUTH DAILY 90 tablet 3 10/21/2023 ActivelamoTRIgine 150 mg oral tablet (10 sources)Mood Stabilizer, Anti-epileptic AgentStart: 46-70-7868nhze 1 tablet by mouth once dailyLamotrigine 150 mg tablet Active 150 MG PO Daily March 25, 2025 12:00am Complies with drug therapyStart: 80-88-3348subv 1 tablet by mouth in the morninglamoTRIgine (LaMICtal) 200 mg tablet Indications: Major depressive disorder, recurrent episode, moderate (CMS-HCC) Take 1 tablet (200 mg total) by mouth in the morning. 90 tablet 3 09/29/2024 ActiveStart: 02-12-2023 take 1 tablet by mouth once dailylamoTRIgine (LaMICtal) 150 mg tablet Indications: Major depressive disorder, recurrent episode, moderate (CMS-HCC) Take 1 tablet (150 mg total) by mouth once daily. 90 tablet 3 02/12/2023 Active lisinopril 10 mg oral tablet (10 sources)Angiotensin Converting Enzyme InhibitorStart: 66-16-5767exmx 1 tablet by mouth once dailyLisinopril 10 mg tablet Active 10 MG PO Daily March 25, 2025 12:00am Complies with drug therapyStart: 50-44-8220mrdh 1 tablet by mouth once dailylisinopril 10 MG tablet Indications: Essential (primary) hypertension (CMS/HCC) TAKE 1 TABLET BY MOUTH DAILY 90 tablet 3 09/15/2024 ActiveNirmatrelvir&Ritonavir 300/100 (Paxlovid, 300/100,) 20 x 150 MG & 10 x 100MG tablet therapypack (3 sources)Start: 05-29-2024 End: 49-00-8799Pxxrcnanwgta&Ritonavir 300/100 (Paxlovid, 300/100,) 20 x 150 MG & 10 x 100MG tablet therapypack Indications: COVID-19 Take 1 each by mouth See administration instructions 1 each 05/29/2024 09/23/2024 DiscontinuedStart: 13-13-2158Tmukrtlyrloq&Ritonavir 300/100 (Paxlovid, 300/100,) 20 x 150 MG & 10 x 100MG tablet therapypack Indications: COVID-19 Take 1 each by mouth See administration instructions 1 each 05/29/2024 Fuobpz64 actuat umeclidinium 0.0625 mg/actuat dry powder inhaler (10 sources)AnticholinergicStart: 40-31-6330fryv 62.5 ug by inhalation once dailyUmeclidinium (Incruse Ellipta) 62.5 mcg/actuation blister with device Active 1 INH INHALATION Daily30 February 08, 2025 11:00pm Complies with drug therapyStart: 46-08-5050bciq 1 puff(s) by mouth once dailyUmeclidinium [place] (Incruse Ellipta) 62.5 MCG/ACT aerosol powder Indications: Chronic obstructivepulmonary disease, unspecified INHALE 1 PUFF BY MOUTH DAILY 30 each 5 08/18/2024 ActiveStart: 18-38-5314xkfp 1 puff(s) by mouth once dailyUmeclidinium [place] (Incruse Ellipta) 62.5 MCG/ACT aerosol powder Indications: Chronic obstructivepulmonary disease, unspecified (CMS/HCC) INHALE 1 PUFF BY MOUTH DAILY 30 each 5 02/07/2024 ActiveStart: 45-00-9185XHJZNOC ELLIPTA 62.5 mcg/actuation blister with device 06/12/2020 ActiveStart: 69-11-9508prap 1 puff(s) by inhalation once dailyINCRUSE ELLIPTA 62.5 mcg/actuation blister with device INHALE 1 PUFF DAILY 06/12/2020 Active Problems Active Problems Problem ClassificationProblemDateDocumented DateEpisodic/ChronicAnxiety disorders (13 sources)Generalized anxiety disorder; Translations: [Generalized anxiety disorder]Onset: 438579-07-1849SvsqvwiSwvuake kidney disease (10 sources)Chronic kidney disease stage 3A ; Translations: [Stage 3a chronic kidney disease (HCC)]Onset: 629195-52-2880VlsvdxvPyhefop obstructive pulmonary disease and bronchiectasis (15 sources)Chronic obstructive lung disease; Translations: [Chronic obstructive pulmonary disease, unspecified]Onset: 788446-93-0162XffctafMeymoatkjl associated with dizziness or vertigo (8 sources)Peripheral vertigo; Translations: [Benign paroxysmal vertigo, bilateral]Onset: 067319-25-0437AkpykqneQmqjvbrf mellitus without complication (10 sources)Prediabetes; Translations: [Prediabetes]Onset: EpisodicDisorders of lipid metabolism (10 sources)Dyslipidemia; Translations: [Hyperlipidemia, unspecified]Onset: 358124-57-6413GnyqzpfJsnervrbp hypertension (13 sources)Benign essential hypertension; Translations: [Essential (primary) hypertension]Onset: 488437-21-9440AcukcpdApcizadeznm of prostate (2 sources)Nocturia due to benign prostatic hypertrophy; Translations: [Benign prostatic hyperplasia with lower urinary tract symptoms]16-81-0420OtmxoouAouk disorders (16 sources)Depressed bipolar I disorder in remission; Translations: [Bipolar disorder, in full remission, mostrecent episode depressed]Onset: 12-21-2016 19-47-9415EsuhekqHwxqkyiurgs deficiencies (8 sources)Vitamin D deficiency; Translations: [Vitamin D deficiency, unspecified]Onset: 640136-29-5413GyryfteCeqbvzyma or stenosis of precerebral arteries (10 sources)Left carotid artery stenosis; Translations: [Occlusion and stenosis of left carotid artery]Onset: 333440-68-0125PitymmrExvvp aftercare (10 sources)Long-term current use of drug therapy; Translations: [Other intermediate designer (current) drug therapy]Onset: 659651-45-7767XmjvctttXmebd nutritional; endocrine; and metabolic disorders (5 sources)Obesity caused by energy imbalance; Translations: [Class 1 obesity due to excess calories with serious comorbidity and body mass index (BMI) of 30.0 to 30.9 in adult]Onset: 926311-60-7598VafbdstOcrgxoej codes; unclassified (8 sources)Obstructive sleep apnea syndrome; Translations: [Obstructive sleep apnea (adult) (pediatric)]Onset: hronic Past or Other Problems Problem ClassificationProblemDateDocumented DateEpisodic/ChronicMood disorders (3 sources)Mood disordersOnset: 911853-68-3147Ltrnr screening for suspected conditions (not mental disorders or infectious disease) (9 sources)Patient encounter status; Translations: [Encounter for screening for malignant neoplasm of prostate]Onset: 568668-21-8988Kwulclop Results Test NameValueInterpretationReference RangeFacilityALL CBC WITH AUTO DIFFon 32-64-7908NCYOFSFWE ABSOLUTE AUTO0.1NOMS HealthcareBasophils/100 WBC (Bld)0.7 % 0.2 - 2.0 %NOMS HealthcareEosinophils/100 WBC (Bld)1.9 %0.9 - 7.0 %[facility] FultonErythrocyte distribution width (RBC) [Ratio]12.6 %11.0 - 15.0 %[facility] FultonHematocrit (Bld) [Volume fraction]45.6 %42.0 - 54.0 %[facility] Hemoglobin (Bld) [Mass/Vol]15.9 g/dL14.0 - 18.0 g/dLFulton Medical Center- FultonIMMATURE GRANULOCYTES ABS AUTO0.03NOChildren's Mercy HospitalImmature granulocytes/100 WBC (Bld)0.4 % 0.0 - 0.5 %[facility] FultonInterpretation and review of laboratory results AbnormalNOChildren's Mercy HospitalLYMPHOCYTES ABSOLUTE AUTO2.1NOMS [facility] Lymphocytes/100 WBC (Bld)24.9 %20.5 - 60.0 %[facility] CenterH (RBC) [Entitic mass]33.4 pg25.9 - 34.0 pgSaint Francis Medical CenterHC (RBC) [Mass/Vol]34.9 g/dL29.9 - 35.2 g/dLSaint Francis Medical CenterV (RBC) [Entitic vol]95.8 jLYpzy09.0 - 94.0 fLFulton Medical Center- FultonMONOCYTES ABSOLUTE AUTO0.4NOMS Wilson HealthMonocytes/100 WBC (Bld)5 %1.7 - 12.0 %[facility] FultonNEUTROPHILS ABSOLUTE AUTO5.7[facility] Neutrophils/100 WBC (Bld)67.1 %43.0 - 75.0 %[facility] FultonPlatelet mean volume (Bld) [Entitic vol]9.3 fLLow9.5 - 13.5 fLFulton Medical Center- FultonTB EO #0.2N[facility]S [facility] NKM223TTHO [facility] RBC4.76N[facility] WBC8.4NOChildren's Mercy HospitalCLINISYNCNBarnes-Jewish West County HospitalCBC AUTO DIFFon 21-21-5040FMCI #0.1 103/ul Normal0.0-0.1The [facility]ittman HospitalComment on above:Performed By: #### CBC #### [facility] [address] [address] [address] Aicha KellerBasophils/100 WBC (Bld)0.9 %Normal0.2-2.0[facility] Comment on above:Performed By: #### CBC #### [facility] [address] [place] [address] Dr. Aicha Matute #0.3 103/ulNormal0.0-0.7The [facility]-Rittman HospitalComment on above: Performed By: #### CBC #### [facility] [address] [place] [address] Dr. Aicha Ringosinophils/100 WBC (Bld)4.4 %Normal0.9-7.0[facility] Comment on above:Performed By: #### CBC #### [facility] [address] [place] [address] Dr. Aicha Ringrythrocyte distribution width (RBC) [Ratio]13.0 %Svlnsm98.0-15.0 [facility] HospitalComment on above:Performed By: #### CBC #### [facility] [address] [place] [address] Dr. Aicha KellerHematocrit (Bld) [Volume fraction]41.9 %Critically low42.0-54.0 [facility] HospitalComment on above:Performed By: #### CBC #### [facility] [address] [place] [address] Dr. Aicha KellerHemoglobin (Bld) [Mass/Vol]14.0 g/mWTiuoib49.0-18.0[facility] HospitalComment on above:Performed By: #### CBC #### [facility] [address] [place] [address] Dr. Aicha Charles #0.04 10e3/ulCritically high0.00-0.03[facility] Comment on above:Performed By: #### CBC #### [facility] [address] [place] [address] Dr. Aicha Charles %0.6 %Critically high0.0-0.5The [facility]-Rittman HospitalComment on above:Performed By: #### CBC #### [facility] [address] [place] [address] Dr. Aicha Jacques #1.6 103/ulNormal1.2-3.8The [facility]-Rittman HospitalComment on above:Performed By: #### CBC #### [facility] [address] [place] [address] Dr. Aicha Wardmphocytes/100 WBC (Bld)24.1 %Cqeliv59.5-60.0The [facility]-Rittman HospitalComment on above:Performed By: #### CBC #### [facility] [address] [place] [address] Dr. Aicha Alonso DIFF REQNONormalThe [facility]sworth-Rittman HospitalComment on above: Performed By: #### CBC #### [facility] [address] [place] [address] Dr. Aicha Zaman (RBC) [Entitic mass]31.3 ixOpvnyv01.9-34.0The [facility]-Rittman HospitalComment on above:Performed By: #### CBC #### [facility] [address] [place] [address] Dr. Aicha Zaman (RBC) [Mass/Vol]33.4 g/lZVrzwnp97.9-35.2The [facility]-Rittman HospitalComment on above:Performed By: #### CBC #### [facility] [address] [place] [address] Dr. Aicha Zamora (RBC) [Entitic vol]93.7 eTZgokap06.0-94.0The [facility]-Rittman HospitalComment on above:Performed By: #### CBC #### [facility] [address] [place] [address] Dr. Aicha Birmingham #0.4 103/ulNormal0.3-0.8The [facility]-Rittman HospitalComment on above:Performed By: #### CBC #### [facility] [address] [place] [address] Dr. Aicha Rhodesocytes/100 WBC (Bld)6.3 %Normal1.7-12.0The [facility] Comment on above:Performed By: #### CBC #### [facility] [address] [place] [address] Dr. Yilan ChangNEUT #4.3 103/ulNormal1.4-6.5The [facility]-Rittman HospitalComment on above:Performed By: #### CBC #### [facility] [address] [place] [address] Dr. Aicha Echevarriautrophils/100 WBC (Bld)63.7 %Foohpn05.0-75.0[facility] HospitalComment on above:Performed By: #### CBC #### [facility] [address] [place] [address] Dr. Aicha Sawyerlet mean volume (Bld) [Entitic vol]9.2 fLCritically low 9.5-13.5The [facility]ittman HospitalComment on above:Performed By: #### CBC #### [facility] [address] [place] [address] Dr. Aicha KellerPLT193 103/hzFsjzkt187-739Kym [facility]ittman HospitalComment on above: Performed By: #### CBC #### [facility] [address] [place] [address] Dr. Aicha KellerRBC4.47 106/ulCritically low4.70-6.10The [facility]ittman HospitalComment on above:Performed By: #### CBC #### [facility] [address] [place] [address] Dr. Aicha KellerWBC6.8 103/ulNormal4.0-11.0[facility] HospitalComment on above: Performed By: #### CBC #### [facility] [address] [place] [address] Dr. Aicha KellerGLYCOHEMOGLOBIN A1Con 94-41-7376CMI RECOMMENDATIONSEE BELOWNormal The [facility]-Rittman HospitalComment on above:Result Comment: ADA RECOMMENDED LIMIT 4.0 - 6.0 ADA THERAPEUTIC TARGET < 7.0 ACTION SUGGESTED > 7.0Performed By: #### A1C #### [facility] [address] [place] [address] Dr. Aicha KellerGlucose [Mass/Vol]111 mg/dLNormalThAultman HospitalComment on above:Performed By: #### A1C #### [facility] [address] [address] [address] Aicha KellerHbA1c (Bld) [Mass fraction]5.5 %Normal4.5-6.2The [facility]-Rittman HospitalComment on above:Performed By: #### A1C #### [facility] [address] [address] [address] Aicha BonillaID PROFILEon 10-23-1687NONN-HDL RATIO NORMSEE BELOWOur Lady of Mercy HospitalComment on above:Result Comment: 3.3 - 4.4 LOW RISK 4.4 - 7.1 AVERAGE RISK 7.1 - 11.0 MODERATE RISK >11.0 HIGH RISKPerformed By: #### LIPID, LIVER, BMP #### [facility] [address] [place] [address] Dr. Aicha Arriagaesterol [Mass/Vol]153 mg/dLNormal<=200The [facility] Comment on above:Performed By: #### LIPID, LIVER, BMP #### [facility] [address] [place] [address] Dr. Aicha Arriagaesterol in HDL [Mass/Vol]35 mg/dLCritically scl51-67Bnb [facility] HospitalComment on above:Performed By: #### LIPID, LIVER, BMP #### [facility] [address] [place] [address] Dr. Aicha Arriagaesterol in LDL [Mass/Vol]93.4 mg/dLOur Lady of Mercy HospitalComment on above:Performed By: #### LIPID, LIVER, BMP #### [facility] [address] [place] [address] Dr. Aicha Nguyen.total/Cholesterol in HDL [Mass ratio]4.4 {ratio} NormalThe [facility]sworth-Rittman HospitalComment on above:Performed By: #### LIPID, LIVER, BMP #### [facility] [address] [place] [address] Dr. Aicha KellerHDL NORMAL> or = 60 mg/dl - LOW CARDIOVASCULAR RISK <40 mg/dl - HIGH CARDIOVASCULAR RISKOur Lady of Mercy HospitalComment on above:Performed By: #### LIPID, LIVER, BMP #### [facility] [address] [address] [address] Aicha Kruger CALC NORMALSEE BELOWNoMercy Memorial HospitalComment on above:Result Comment: <100 mg/dl OPTIMAL 100 - 129 mg/dl NEAR OR ABOVE OPTIMAL 130 - 159 mg/dl BORDERLINE HIGH 160 - 189 mg/dl HIGH >190 mg/dl VERY HIGH Performed By: #### LIPID, LIVER, BMP #### [facility] [address] [address] [address] Aicha KellerTriglyceride [Mass/Vol]123 mg/dLNormal<=150The [facility] Comment on above:Performed By: #### LIPID, LIVER, BMP #### [facility] [address] [place] [address] Dr. Aicha KellerVLDL CALC24.6 mg/dLNoMercy Memorial HospitalComment on above: Performed By: #### LIPID, LIVER, BMP #### [facility] [address] [place] [address] Dr. Aicha Vidal PROFILEon 02-99-8884Pubbqji [Mass/Vol]3.4 g/dLNormal3.4-5.0 The [facility]Rittman HospitalComment on above:Performed By: #### LIPID, LIVER, BMP #### [facility] [address] [place] [address] Dr. Aicha KellerAlbumin/Globulin [Mass ratio]0.8 {ratio}NormalThe [facility]-Rittman HospitalComment on above:Performed By: #### LIPID, LIVER, BMP #### [facility] [address] [place] [address] Dr. Aicha Draper [Catalytic activity/Vol]65 U/RUerfvd47-913Ofc [facility] HospitalComment on above:Performed By: #### LIPID, LIVER, BMP #### [facility] [address] [place] [address] Dr. Aicha Pereira [Catalytic activity/Vol]25 U/JIfctqd00-74Uqv [facility] HospitalComment on above:Performed By: #### LIPID, LIVER, BMP #### [facility] [address] [address] [address] Aicha KellerAST [Catalytic activity/Vol]17 U/STdqjmp20-25CmjMemorial Health System Marietta Memorial HospitalComment on above:Performed By: #### LIPID, LIVER, BMP #### [facility] [address] [place] [address] Dr. Aicha MeadI, CONJUGATED0.1 mg/dLNormal0.0-0.2[facility] Comment on above:Performed By: #### LIPID, LIVER, BMP #### [facility] [address] [place] [address] Dr. Aicha Meadirubin [Mass/Vol]0.2 mg/dLNormal0.2-1.0[facility] Comment on above:Performed By: #### LIPID, LIVER, BMP #### [facility] [address] [place] [address] Dr. Aicha KellerGlobulin (S) [Mass/Vol]4.1 g/dLNormalThe [facility]ittman HospitalComment on above:Performed By: #### LIPID, LIVER, BMP #### [facility] [address] [place] [address] Dr. Aicha KellerProtein [Mass/Vol]7.5 g/dLNormal6.4-8.2The [facility] Comment on above:Performed By: #### LIPID, LIVER, BMP #### [facility] [address] [place] [address] Dr. Aicha KellerPROF CHEM 8 (BAS METB)on 21-76-5062Mvfdf gap [Moles/Vol]12.0 mmol/LNormalThe [facility]ittman HospitalComment on above:Performed By: #### LIPID, LIVER, BMP #### [facility] [address] [place] [address] Dr. Aicha KellerCalcium [Mass/Vol]8.9 mg/dLNormal8.5-10.1[facility] Comment on above:Performed By: #### LIPID, LIVER, BMP #### [facility] [address] [place] [address] Dr. Aicha KellerChloride [Moles/Vol]103 mmol/VVnesvj35-133LcxMemorial Health System Mari[facility] Hospital Comment on above:Performed By: #### LIPID, LIVER, BMP #### [facility] [address] [place] [address] Dr. Aicha KellerCO2 [Moles/Vol]28.5 mmol/XIphhmn99.0-32.0The [facility] Comment on above:Performed By: #### LIPID, LIVER, BMP #### [facility] [address] [place] [address] Dr. Aicha KellerCreatinine [Mass/Vol]1.13 mg/dLNormal0.70-1.30The [facility]ittman HospitalComment on above:Performed By: #### LIPID, LIVER, BMP #### [facility] [address] [place] [address] Dr. Aicha RingGFR-AF TUVALUAN>60Normal>=60The [facility]ittman HospitalComment on above:Performed By: #### LIPID, LIVER, BMP #### [facility] [address] [place] [address] Dr. Aicha RingGFR-NON AF TUVALUAN>60Normal>=60The [facility]ittman HospitalComment on above:Performed By: #### LIPID, LIVER, BMP #### [facility] [address] [place] [address] Dr. Aicha KellerGlucose [Mass/Vol]124 mg/dLCritically wvpo64-882Qxe [facility] HospitalComment on above:Performed By: #### LIPID, LIVER, BMP #### [facility] [address] [place] [address] Dr. Aicha KellerPotassium [Moles/Vol]4.5 mmol/LNormal3.5-5.1The [facility] Comment on above:Performed By: #### LIPID, LIVER, BMP #### [facility] [address] [place] [address] Dr. Aicha KellerSodium [Moles/Vol]139 mmol/OWmxfly469-183AmsMemorial Health System [facility] Hospital Comment on above:Performed By: #### LIPID, LIVER, BMP #### [facility] [address] [place] [address] Dr. Aicha Charlton nitrogen [Mass/Vol]9.0 mg/dLNormal7.0-18.0[facility] HospitalComment on above:Performed By: #### LIPID, LIVER, BMP #### [facility] [address] [place] [address] Dr. Aicha Charlton nitrogen/Creatinine [Mass ratio]8.0 mg/mgOur Lady of Mercy HospitalComment on above:Performed By: #### LIPID, LIVER, BMP #### [facility] [address] [place] [address] Dr. Aicha KellerVITAMIN D 25 OHon 25-84-4385MNY D 25-OH26.6 ng/mLNormalThe [facility]-Rittman HospitalComment on above:Performed By: #### VITAD, PSASC #### [facility] [address] [place] [address] Dr. Aicha MitchellT D RANGESSEE BELOWOur Lady of Mercy HospitalComment on above: Result Comment: <20 ng/mL Vit D deficient 20 - <30 ng/mL Vit D insufficient 30 - 100 ng/mL Vit D sufficient >100 ng/mL Potential ToxicityPerformed By: #### VITAD, PSASC #### [facility] [address] [place] [address] Dr. Aicha Keller Vital Signs Date TimeVital SignValuePerforming KypafqaskOsganxhx27-64-6037 13:13-0500Body .26 cmLobo Wylie MD Work Phone: [facility]11-10-2025 13:13-0500 Body mass index (BMI) [Ratio]28.6 kg/m2Lobo Wylie MD Work Phone: [facility]11-10-2025 13:13-0500 Body urnomdvkkwx55.5 [degF]Lobo Wylie MD Work Phone: [facility]11-10-2025 13:13-0500 Body koymab13.99 kgLobo Wylie MD Work Phone: [phone]-[facility]11-10-2025 13:13-0500 Diastolic blood jcurcogh86 mm[Hg]Lobo Wylie MD Work Phone: [phone] [place], [place] [address]11-10-2025 13:13-0500 Heart rate73 /minLobo Wylie MD Work Phone: [phone]-[facility]11-10-2025 13:13-0500 Respiratory rate18 /minLobo Wylie MD Work Phone: [phone] [facility] Street11-10-2025 13:13-0500 SaO2% (BldA) [Mass fraction]98 %Lobo Wylie MD Work Phone: [phone]11-10-2025 13:13-0500 Systolic blood vqzaxbwq134 mm[Hg]Lobo Wylie MD Work Phone: [phone]05-07-2025 13:13-0400 Body evamvw630.7 cmLobo Wylie MD Work Phone: [phone]05-07-2025 13:13-0400Body mass index (BMI) [Ratio]29.65 kg/m2Lobo Wylie MD Work Phone: [facility]ultonAjbgslsdyr10-21-4050 13:13-0400Body temperature 97.5 [degF]Lobo Wlyie MD Work Phone: [facility] FultonEwqmgczkyy02-44-9195 13:130400Body qhikri90.45 kgLobo Wylie MD Work Phone: [facility] FultonJzjlddygnu50-39-1409 13:13-0400Diastolic blood jgocwyss31 mm[Hg]Lobo Wylie MD Work Phone: [facility] FultonHknnbtslyw00-77-0411 13:13-0400Heart rate71 /min Lobo Wylie MD Work Phone: [facility] FultonEwdqtmdbrh05-22-0045 13:13-0400Respiratory rate18 /minLobo Wylie MD Work Phone: [phone] [place], [place] [address]6705-07-2025 13:13-9613CjJ3% (BldA) [Mass fraction]98 %Lobo Wylie MD Work Phone: [facility] FultonEwpdiyhdoa75-37-4241 13:13-0400Systolic blood ncpbbzyc187 mm[Hg]Lobo Wylie MD Work Phone: [facility] FultonIysoreyfzr46-07-7523 13:24-0500Body gpkmim106.7 cmLobo Wylie MD Work Phone: [phone])[facility] [place], [place] [address]Aoyebeqgfo87-52-6103 13:24-0500Body mass index (BMI) [Ratio]31.02 kg/m2Lobo Wylie MD Work Phone: [phone] [place], [place] [address]Jxfswwkwbn81-05-3684 13:24-0500Body temperature 97.81 [degF]Lobo Wylie MD Work Phone: [facility] FultonNegmvtkqze82-17-2077 13:24-0500Body tpysxg98.53 kgLobo Wylie MD Work Phone: [facility] FultonGptkyyaiqf34-63-5024 13:24-0500Diastolic blood pvlutdit31 mm[Hg]Lobo Wylie MD Work Phone: [facility] FultonBoucpaziss79-11-5603 13:24-0500Heart rate87 /min Lobo Wylie MD Work Phone: [facility] FultonZqpqzgknyu42-51-5947 13:24-0500Respiratory rate20 /minLobo Wylie MD Work Phone: [facility] FultonUjvqcqmoqh29-87-5789 13:24-9346ApU0% (BldA) [Mass fraction]96 %Lobo Wylie MD Work Phone: [facility] FultonEdgvjqmqrq23-37-1322 13:24-0500Systolic blood lnnxywbg727 mm[Hg]Lobo Wylie MD Work Phone: [facility] Healthcare Encounters Encounter DateEncounter TypeCare ProviderFacilityStart: 03-29-2025 End: 80-81-7639jmykwlwpmiJcbb Naderer MD Work Phone: -[facility] ClydeStart: 03-29-2025 End: 81-29-3322Mcejcfd encounter procedureLobo Wlyie MD-[facility] Brenda Work Phone: Start: 12-28-2024 End: 56-16-4869Qipmoc Costa Stacy MD Work Phone: [facility] HealthStart: 10-15-2024 End: 23-91-4567Ygejwnjxq Result EncounterLobo Wylie MD Work Phone: noms External Department UnsolicitedStart: 10-15-2024 End: 25-95-9172Hjreffzup Result EncounterLobo Wylie MD Work Phone: noms External Department UnsolicitedStart: 09-29-2024 End: 18-20-4347hnfgddggheINLU J TRAVISProMedica Mountville HospitalStart: 09-23-2024 End: 62-98-1408Uzsvjo flowsheetLobo Wylie MD Work Phone: [facility] CWM FMStart: 09-23-2024 End: 02-21-5099Nvblvs flowsJavier Wylie MD Work Phone: [facility] CWM FMStart: 09-23-2024 End: 63-15-1678Sqgzjbh encounter procedureLobo Wylie MD Work Phone: [facility] Work Phone: Start: 09-23-2024 End: 64-98-0081Iamfhm follow up visit related to original pxLobo Wylie MD Work Phone: noms CW FMComment on above:Medicare annual wellness visit, subsequent (Primary Dx); Chronic obstructive pulmonary [...] index (BMI) of 30.0 to 30.9 in adultStart: 09-23-2024 End: 34-73-7610fczilixqihUSCJ NADERERNot AvailableStart: 03-31-2024 End: 31-23-7217wksibtjxomQPSS J [facility] HospitalStart: 03-23-2024 End: 29-26-7523Pfczyscristobal Wylie MD Work Phone: [facility] CWM FMStart: 03-23-2024 End: 82-48-4456Oebyynkim Wylie MD Work Phone: [facility] CWM FMStart: 03-23-2024 End: 66-93-6230Ibeefq outpatient visit 25 minutesLobo Wylie MD Work Phone: noms CW FMComment on above:Essential hypertension, benign (CMS/HCC) (Primary Dx); Chronic obstructive pulmonary disease, unspecified COPD type (CMS/HCC); Depressed bipolar I disorder in remission (CMS/HCC); Left carotid artery stenosisStart: 03-23-2024 End: 67-90-2442ccyvhhodomCPPB NADERERNot AvailableStart: 12-09-2023 End: 80-43-8532CgagtnUyyyqm Carroll CMAProMedica Physicians Behavioral HealthComment on above:Panic disorderStart: 10-07-2023 End: 84-00-6417rxvxhfcyomSOFK NADERERNot AvailableStart: 48-62-8003mwjiitzgsdFK LOBO A NADERERFacility:H1 Procedures DateProcedureProcedure DetailPerforming ClinicianStart: 81-34-8908UTI CBC WITH AUTO DIFFLobo Wylie MD Work Phone: Start: 23-58-8063BWE screeningDR LOBO NADERERComment on above:Performed By: #### VITAD, PSASC #### [facility] [address] [place] [address] Dr. Aicha KellerStart: 04-84-2234DwhxmoqjejqRuqn Inessa MUKHERJEE Work Phone: Plan of Treatment DateCare ActivityDetailAuthorStart: 80-53-7679Cohnvkkcv for malignant neoplasm of colonNOMS HealthcareStart: 05-07-2026Medicare Annual Wellness (AWV)Medicare Annual Wellness (AWV)[facility] HealthcareStart: 03-29-2025 End: 45-72-3666Xmnwmyz encounter islmlzbke40/10/2025 1:00 PM EST Office Visit [facility] [address] [place] [phone] Lobo Wylie MD [address] [place] [address] [facility] FMStart: 15-69-5836Qgwjvavrn vaccinationInfluenza VaccineSCCI Hospital Lima SystemStart: 09-23-2024 End: 29-78-9724Grawy metabolic 1998 panel - Serum or PlasmaBasic metabolic panel Lab Routine Stage 3a chronic kidney disease (HCC) (CMS/HCC) Expected: 09/24/19 (Approximate), Expires: 09/23/2025NOSC HealthcareComment on above:Expected: 09/23/2024 (Approximate), Expires: 09/23/2025Start: 09-23-2024 End: 02-86-5658SWV W Auto Differential panel - BloodCBC and differential Lab Routine Encounter for long-term (current) use of medications Expected: 11/2024 (Approximate), Expires: 09/23/2025N[facility] HealthcareComment on above: Expected: 09/23/2024 (Approximate), Expires: 09/23/2025Start: 09-23-2024 End: 43-12-9480Msvxsdhhqn A1c/Hemoglobin.total in BloodHemoglobin A1c Lab Routine Prediabetes Expected: 09/23/2024 (Approximate), Expires: 09/23/2025[facility] Work Phone: Comment on above:Expected: 09/23/2024 (Approximate), Expires: 09/23/2025Start: 09-23-2024 End: 1949Sxnrure function 2000 panel - Serum or PlasmaHepatic function panel Lab Routine Encounter for long-term (current) use of medications Expected: 09/23/2024 (Approximate), Expires: 09/23/2025[facility] HealthcareComment on above: Expected: 09/23/2024 (Approximate), Expires: 09/23/2025Start: 09-23-2024 End: 16-48-6004Wucju 1996 panel - Serum or PlasmaLipid panel Lab Routine Dyslipidemia (CMS/HCC) Expected: 09/23/2024 (Approximate), Expires: 09/23/2025 [facility] HealthcareComment on above:Expected: 09/23/2024 (Approximate), Expires: 09/23/2025Start: 09-23-2024 End: 06-26-1655Ueayzhtk specific Ag [Mass/volume] in Serum or PlasmaPSA Lab Routine Screening PSA (prostate specific antigen) Expected: 09/23/2024 (Approximate), Expires: 09/23/2025N[facility] HealthcareComment on above:Expected: 09/23/2024 (Approximate), Expires: 09/23/2025Start: 09-23-2024 End: 20-42-5065Eeajfinptns [Units/volume] in Serum or PlasmaTSH Lab Routine Class 1 obesity due to excess calories with serious comorbidity and body mass index(BMI) of 30.0 to 30.9 in adult Expected: 09/23/2024 (Approximate), Expires: 09/23/2025N[facility] HealthcareComment on above:Expected: 09/23/2024 (Approximate), Expires: 09/23/2025Start: 09-23-2024 End: 66-57-6353Iigrcre encounter procedureNOMS AMEYA FMComment on above:Arrived Start: 73-51-4596ESBRG-19 Vaccine ( season)COVID-19 Vaccine ( season)[facility] [employer] [employer] SystemStart: 03-23-2024 End: 60-65-5943Yrpmvrn encounter /04/2024 1:15 PM EST Office Visit [facility] [address] [place] [phone] Lobo Wylie MD [address] [place] [address] [facility] FMComment on above:ArrivedStart: 94-19-8848Pqmyyvrkp vaccinationNOSC HealthcareStart: 50-71-2190CGKMC-19 Vaccine ( season) COVID-19 Vaccine ( season)[facility] SystemStart: 2014 Fall Risk ScreeningFall Risk ScreeningSCCI Hospital L[facility] SystemStart: 1999 Administration of varicella zoster vaccineZoster (Shingles) Vaccine (1 of 2) [facility] SystemStart: 65-04-1052TYjU,Tdap and Td Vaccines (1 - Tdap) DTaP,Tdap and Td Vaccines (1 - Tdap)[facility] SystemStart: 01-12-1968 Pneumococcal Vaccine: 65+ Years (1 of 2 - PCV)Pneumococcal Vaccine: 65+ Years (1 of 2 - PCV)[facility] HealthcareStart: 46-51-5284Jtdek BMI ScreeningAdult BMI ScreeningProMagruder Memorial Hospital SystemStart: 45-75-4027Uhrfwpqeug ScreeningDepression ScreeningSCCI Hospital Lima SystemStart: 99-45-9877Rlzsmem ScreeningTobacco ScreeningProMagruder Memorial Hospital SystemStart: 40-39-5866Qrhxfnbrghlm Vaccine: 65+ Years (1 of 2 - PCV)Pneumococcal Vaccine: 65+ Years (1 of 2 - PCV)[facility] Healthcare Start: 1949Medicare Annual Wellness (AWV)Medicare Annual Wellness (AWV) [facility] HealthcareStart: 1949Medicare Annual Wellness VisitMedicare Annual Wellness VisitProMagruder Memorial Hospital SystemStart: 68-81-4102Yxrnidbay for malignant neoplasm of colonNOSC HealthcareUS.doppler Carotid arteries - bilateralAvita Health System Immunizations Immunization DateImmunizationNotesCare PyxbqkykPacsfjqi21-24-6355kcozqhuzc virus vaccine, unspecified formulationMarlton Rehabilitation Hospitalmaritza Wylie MD Work Phone: [facility] FultonFlzdivoegk14-44-1051mnrnhcwyq virus vaccine, unspecified formulationSandra Carroll CMASalem Regional Medical Center Payers DatePayer CategoryPayerPolicy [id number] (Managed Care) [id number] 2024Medicare [id number] [id number] 1960 [id number] [id number] [id number] Health [id number] [id number] Social History DateTypeDetailFacilityStart: 10-07-2023 End: 09-59-0264Ufmkufl smoking status NHISSmokes tobacco dailyNOMS Healthcare History of tobacco useCigarette SmokerNOMS HealthcareStart: 41-50-3721Httdsai use and exposureSmokeless tobacco non-userNOMS HealthcareStart: 06-15-2020 End: 58-47-2293Pglqdjm of Social functionCritical access hospitaltart: 06-15-2020 End: 19-87-9027Sedzbxj use panelProDch Regional Medical Center [employer] SystemStart: 53-04-3772Isi assigned at birthNot on fileSCCI Hospital Lima SystemTobacco smoking status NHIS Tobacco smoking consumption unknownSCCI Hospital Lima SystemChildcareUnknown [facility] [employer] SystemStart: 08-33-5293YhfFbnl (finding)[facility] [employer] System Start: 65-10-7816Gvg Assigned At [facility] Functional Status AyilUxsdkamttlSkketsXqczhfvf41-21-3902Kxydklt Health Questionnaire 2 item (PHQ- 2) [Reported][facility] Clinical Notes 12-09-2023 to 09-23-2024 Note Date & XmntLcpkAaiftezg68-24-2352 History of Present illness Narrative* Lobo Wylie MD - 09/23/2024 1:35 PM EDTAssociated Problem(s): Medicare annual wellness visit, subsequent Due for labs. Discussed proper diet and regular aerobic exercise. Need aerobic exercise 5-6 days a week for 30 minutes at a time. Smaller portions and limit total calories. Colonoscopy every 10 years. Tetanus every 10 years. Advised not to smoke. * Lobo Wylie MD - 09/23/2024 1:35 PM EDTAssociated Problem(s): Depressed bipolar I disorder in remission ([facility]) Symptoms controlled with medication and continue. Follow up with psychiatry. * Lobo Wylie MD - 09/23/2024 1:34 PM EDTAssociated Problem(s): COPD (chronic obstructive pulmonary disease) (CMS/HCC) Breathing stable and continue incruse. Use albuterol PRN. * Lobo Wylie MD - 09/23/2024 1:00 PM EDT Images from the original note were not included. Subjective Patient ID: Brian Amin is a 74 y.o. male who presents for Medicare Annual Wellness Visit Subsequent (wellness). Presents for medicare annual wellness visit. Feels well today and no concerns. Weight down 9 poundsin the past year. Tries to stay active around house but no regular exercise. Tries to watch diet and eat healthy. Increased fruits and vegetables. Smaller portions and limits snacking. Tries to limittotal daily calories. Due for labs. Mood controlled [...] adult Relevant Orders TSH documented in this encounterFulton Medical Center- FultonOxxhqofhtj16-81-3360 History of Present illness Narrative* Lobo Wylie MD - 03/23/2024 2:01 PM ESTAssociated Problem(s): Left carotid artery stenosis Found blockage but no symptoms. Check US next visit. * Lobo Wylie MD - 03/23/2024 2:00 PM ESTAssociated Problem(s): Essential hypertension, benign ([facility]) BP controlled and monitor PRN. * Lobo Wylie MD - 03/23/2024 2:00 PM ESTAssociated Problem(s): Depressed bipolar I disorder in remission ([facility]) Symptoms controlled with medication and continue. Follow up with psychiatry. * Lobo Wylie MD - 03/23/2024 2:00 PM ESTAssociated Problem(s): COPD (chronic obstructive pulmonary disease) ([facility]) Breathing stable and continue incruse. Use albuterol PRN. * Lobo Wylie MD - 03/23/2024 1:15 PM EST Images from the original note were not included. Subjective Patient ID: Brian Amin is a 74 y.o. male who presents for Follow-up (6 m). Follow up HTN, COPD, and bipolar. Patient doing well today. Checking BP PRN and typically controlled. BP normal today. Taking medication daily and tolerating without side effects. COPD stable. Takingincruse daily which helps. Mild SOB with exertion. [...] Check US next visit. documented in this encounterFulton Medical Center- FultonEvcqopbfai64-94-5746 Miscellaneous Notes* Psychiatric Progress Note - Eboni Carroll CMA - 12/09/2023 1:52 PM EDT Refill Request recieved via patient phone call [...] Controlled: Oarrs completed? yes documented in this encounterSalem [facility]07-[facility]-2024 Progress note* Psychiatric Progress Note - Eboni Carroll CMA - 12/09/2023 1:52 PM EDT Refill Request recieved via patient phone call [...] date: 09/11/2023 If Controlled: Oarrs completed? yes [facility] SystemEvaluation note* Diagnosis Essential hypertension, benign (CMS/HCC)- Primary Essential hypertension, benign Chronic obstructive pulmonary disease, unspecified COPD type (CMS/HCC) Depressed bipolar I disorder in remission (CMS/HCC) Bipolar I disorder, most recent episode (or current) depressed, in full remission Dyslipidemia (CMS/HCC) Other and unspecified hyperlipidemia Prediabetes Other abnormal glucose Stage 3a chronic kidney disease (HCC) ([facility]/HCC) Vitamin D deficiency Encounter for long-term (current) use of medications Encounter for long-term (current) use of other medications Screening PSA (prostate specific antigen) Special screening for malignant neoplasm of prostate Essential hypertension, benign (CMS/HCC)- Primary Essential hypertension, benign Chronic obstructive pulmonary disease, unspecified COPD type (CMS/HCC) Depressed bipolar I disorder in remission ([facility]/HCC) Bipolar I disorder, most recent episode (or current) depressed, in full remission Left carotid artery stenosis documented in this encounter [facility] HealthcareEvaluation note* Diagnosis Panic disorder Panic disorder without agoraphobia documented in this encounter [facility] SystemEvaluation [facility]* Diagnosis Essential hypertension, benign ([facility]/HCC)- Primary Essential hypertension, benign Chronic obstructive pulmonary disease, unspecified COPD type ([facility]/HCC) Depressed bipolar I disorder in remission ([facility]/HCC) Bipolar I disorder, most recent episode (or current) depressed, in full remission Dyslipidemia ([facility]/HCC) Other and unspecified hyperlipidemia Prediabetes Other abnormal glucose Stage 3a chronic kidney disease (HCC) ([facility]) Vitamin D deficiency Encounter for long-term (current) use of medications Encounter for long-term (current) use of other medications Screening PSA (prostate specific antigen) Special screening for malignant neoplasm of prostate Essential hypertension, benign ([facility]/HCC)- Primary Essential hypertension, benign Chronic obstructive pulmonary disease, unspecified COPD type (CMS/HCC) Depressed bipolar I disorder in remission ([facility]/HCC) Bipolar I disorder, most recent episode (or current) depressed, in full remission Left carotid artery stenosis Medicare annual wellness visit, subsequent- Primary Chronic obstructive pulmonary disease, unspecified COPD type ([facility]/HCC) Depressed bipolar I disorder in remission ([facility]) Bipolar I disorder, most recent episode (or current) depressed, in full remission Dyslipidemia ([facility]/HCC) Other and unspecified hyperlipidemia Encounter for long-term (current) use of medications Encounter for long-term (current) use of other medications Essential hypertension, benign ([facility]/HCC) Essential hypertension, benign Stage 3a chronic kidney disease (HCC) ([facility]) Screening PSA (prostate specific antigen) Special screening for malignant neoplasm of prostate Prediabetes Other abnormal glucose Class 1 obesity due to excess calories with serious comorbidity and body mass index (BMI) of 30.0 to 30.9 in adult documented in this encounter [facility] HealthcareEvaluation note* Diagnosis Onset Date Resolution Status Admit Date BPH associated with nocturia acuteMarch 29, 2025 1:06pmCOPD (chronic obstructive pulmonary disease)acute March 29, 2025 1:06pmDepressed bipolar I disorder in remissionacuteMarch 29, 2025 1:06pmEssential hypertension, benignacuteMarch 29, 2025 1:06pm Generalized anxiety disorderacuteMarch 29, 2025 1:06pmLeft carotid artery stenosisacuteMarch 29, 2025 1:06pm [facility] Work Phone: InstructionsNot on filedocumented in this encounter [facility] SystemInstructionsNot on filedocumented in this encounter [facility] SystemReason for referral (narrative)No reason for referral information availableMetrohealth Main Campus Medical Center Work Phone: Summary Purpose Family History No Family History Records FoundNo Family History Records FoundNo Family History Records Found Advance Directives Advance Directive Response Recorded Date/ Time Advance Directives No March 1:03pm Chief Complaint and Reason for Visit Chief Complaint Admit Date Established Patient March 29, 2025 1:06pm Reason for Visit Admit Date BPH associated with nocturia March 292024 1:06pm COPD (chronic obstructive pulmonary dise ase) March 29, 2025 1:06pm Depressed bipolar I disorder in [facility] n March 29, 2025 1:06pm Essential hypertension, benign March 29, 2025 1:06pm Generalized anxiety disorder March 292024 1:06pm Left carotid artery stenosis March 292024 1:06pm Additional Source Comments (unrecognized sect ion and content) No Status Records FoundNo Status Records FoundNo Status Records Found INFORMATION SOURCE (unrecogn ized section and content) DATE CREATED AUTHOR 10/26/2022 [facility] DATE CREATED AUTHOR AUTHOR'S ORGANIZ ATION 09/26/2024 [facility] DATE CREATED AUTHOR AUTHOR'S ORGANIZ ATION 09/30/2024 [facility] Care Teams (unrecognized sec tion and content) Team MemberRelationshipSpecialtyStart DateEnd Date Lobo Wylie MD [address] [place] [address] PCP - GeneralFamily Medicine10/07/23 Lobo Wylie MD [address] [place] [address] [facility]eam MemberRelationshipSpecialtyStart DateEnd Date Lobo Wylie MD [address] [place] [address] PCP - [facility] Medicine10/07/23 Lobo Wylie MD [address] [place] [address] [facility] SYSTEMSTeam MemberRelationshipSpecialtyStart DateEnd Date Lobo Wylie MD [address] [place] [address] PCP - [facility]06/26/18Team MemberRelationshipSpecialtyStart DateEnd Date Lobo Wylie MD [address] [place] [address] [facility] - [facility]23 Lobo Wylie MD [address] [place] [address] [facility] SYSTEMSTeam MemberRelationshipSpecialtyStart DateEnd Date Lobo Wylie MD [address] [place] [phone] [facility] - [facility]10/07/23 Lobo Wylie MD [address] [place] [address] [facility] SYSTEMSTeam MemberRelationshipSpecialtyStart DateEnd Date Lobo Wylie MD [address] [place] [address] PCP - [facility]10/07/23 Lobo Wylie MD [address] [place] [address] [place] [address]Team MemberRelationshipSpecialtyStart DateEnd Date Lobo Wylie MD PCP - [facility]06/26/18 Team Status: Active Member Role/Relationship Status Dates Lobo Wylie MD Primary Care Provider Active Team Status: Inactive Member Role/Relationship Status Dates Lobo Wylie MD Primary Care Provider Active S tart: March 29, 2025 End: March 29, 2025[facility] Hospitalmaritza Wylie MDAttending ProviderActiveStart: March 29, 2025 End: March 29, 2025 Reason for Visit (unrecogniz ed section and content) ReasonCommentsFollow-up6 mReasonOnset DateCommentsMed [id number] CommentsMedicare Annual Wellness Visit Subsequentwellness Goals (unrecognized section and content) Goals may be documented in a n alternate section FOR RECORDS PERTAINING TO PATIENTS WHO ARE [...] BE BASED ON THE PRIMARY CLINICAL RECORDS. [facility] [facility]. provides no warranty or guarantee of the accuracy or completeness of information in this document.
== END 2025-04-07 13:54 | disposition home or self-care (01) ==
PROVIDERS: PCP Family Medicine; Visit Provider Family Medicine
DX: I65.22 Occlusion and stenosis of left carotid artery (principal)
CPT/HCPCS: 93880